=== PATIENT | female | born 1970 | race Caucasian/White ===

== ENCOUNTER 2023-07-15 08:14 | Outpatient (OUT) | payer OTHER, SELFPAY ==
[2023-07-15 09:00] LABS: Basophils Percent Auto 0.4 % (0.2-2.0); Eosinophils Absolute Auto 0.2 10^3/uL (0.0-0.7); Eosinophils Percent Auto 2.5 % (0.9-7.0); Hematocrit 38.6 % (36.0-48.0); Hemoglobin 12.5 g/dL (12.0-16.0); Immature Granulocytes Abs Auto 0.02 10^3/uL (0.00-0.03); Immature Granulocytes Pct Auto 0.3 % (0.0-0.5); Lymphocytes Absolute Auto 1.7 10^3/uL (1.2-3.8); Lymphocytes Percent Auto 24.2 % (20.5-60.0); Mean Corpuscular HGB Conc 32.4 g/dL (29.9-35.2); Mean Corpuscular Hemoglobin 30.9 pg (26.7-34.0); Mean Corpuscular Volume 95.5 fL (81.0-99.0); Mean Platelet Volume 10.6 fL (9.5-13.5); Monocytes Absolute Auto 0.6 10^3/uL (0.3-0.8); Monocytes Percent Auto 8.2 % (1.7-12.0); Neutrophils Absolute Auto 4.4 10^3/uL (1.4-6.5); Neutrophils Percent Auto 64.4 % (43.0-75.0); Platelet Count 236 10^3/uL (150-450); Red Blood Count 4.04 10^6/uL (4.20-5.40); Red Cell Distribution Width 13.7 % (11.0-15.0); White Blood Count 6.9 10^3/uL (4.0-11.0)
[2023-07-15 09:37] LABS: Alanine Aminotransferase 15 U/L (14-59); Albumin Level 3.4 g/dL (3.4-5.0); Alkaline Phosphatase 53 U/L (46-116); Anion Gap 10.1; Aspartate Amino Transferase 15 U/L (15-37); BUN Creatinine Ratio 24.2; Bilirubin Total 0.3 mg/dL (0.2-1.0); Calcium 8.7 mg/dL (8.5-10.1); Carbon Dioxide 25.8 mmol/L (21.0-32.0); Chloride 104 mmol/L (98-107); Chol HDL Ratio 2.8; Cholesterol 132 mg/dL (<=200); Estimated GFR (African America >60 (>=60); Estimated GFR (Non-African Ame >60 (>=60); Globulin 3.5 g/dL; Glucose 97 mg/dL (74-106); HDL Cholesterol 48 mg/dL (40-60); LDL Cholesterol Calculated 66.4 mg/dL; Potassium 3.9 mmol/L (3.5-5.1); Sodium 136 mmol/L (136-145); Thyroid Stimulating Hormone 0.053 uIU/mL (0.358-3.740); Total Protein 6.9 g/dL (6.4-8.2); Triglycerides 88 mg/dL (<=150); VLDL CHOLESTEROL 17.6 mg/dL
[2023-07-15 09:54] LABS: Free T4 1.18 ng/dL (0.76-1.46)
[2023-07-15 09:58] LABS: Estimated Average Glucose 111 mg/dL; Glycohemoglobin A1C 5.5 % (4.5-6.2)
== END 2023-07-15 08:15 | disposition home or self-care (01) ==
LOC: LAB 08:18
PROVIDERS: Family Provider Obstetrics & Gynecology; PCP Family Medicine; Visit Provider Family Medicine
DX: Z00.00 Encounter for general adult medical examination without abnormal findings (principal); R35.0 Frequency of micturition; R53.83 Other fatigue; E03.9 Hypothyroidism, unspecified
CPT/HCPCS: 36415; 80053; 80061; 81001; 83036; 84439; 84443; 85025; 87086

== ENCOUNTER 2023-07-15 08:24 | Outpatient (OUT) | payer OTHER, SELFPAY ==
[2023-07-15 08:45] LABS: Bilirubin Urine NEGATIVE (NEGATIVE); Blood Urine NEGATIVE (NEGATIVE); Clarity Urine CLEAR (CLEAR); Color Urine LT. YELLOW (YELLOW); Glucose Urine UA NEGATIVE (NEGATIVE); Ketones Urine NEGATIVE (NEGATIVE); Leukocyte Esterase Urine NEGATIVE (NEGATIVE); Nitrite Urine NEGATIVE (NEGATIVE); Protein Urine NEGATIVE (NEG/TRACE); Specific Gravity Urine >=1.030 (1.005-1.025); Urobilinogen Urine 0.2 EU/dL (0.2-1.0)
[2023-07-15 09:35] LABS: Bacteria Urine NONE SEEN #/HPF (NONE SEEN); Mucus Urine NONE SEEN (NONE SEEN); RBC Urine NONE SEEN #/HPF (0-2); Squamous Epithelial Cell Urine FEW #/LPF (NONE/RARE); WBC Urine NONE SEEN #/HPF (NONE SEEN)
[2023-07-15 09:36] LABS: Urine Culture Indicated ALREADY ORDERED
== END 2023-07-15 08:25 | disposition home or self-care (01) ==
LOC: LAB 08:29
PROVIDERS: Family Provider Obstetrics & Gynecology; PCP Family Medicine; Visit Provider Nurse Practitioner Family
DX: R35.0 Frequency of micturition (principal)
CPT/HCPCS: 81001; 87086

== ENCOUNTER 2024-02-24 08:55 | Outpatient (OUT) | payer OTHER, SELFPAY ==
--- OUTSIDE RECORDS SUMMARY | 2024-02-24 09:04 | XMS_ITS | CCD ---
Author Organization [facility] Care Team Providers Care Hyperion Essbase Developer Name Role Phone HOY ., DR STONER Admitting Unavailable HOY ., DR STONER Attending Unavailable HOY ., DR STONER Primary Care Unavailable HOY ., DR STONER Consulting Unavailable ZieberMisael Consulting Unavailable VISCI, DR SALEEM Consulting Unavailable HOY ., DR STONER Admitting Unavailable HOY ., DR STONER Attending Unavailable HOY ., DR STONER Primary Care Unavailable HOY ., DR STONER Consulting Unavailable HOY ., DR STONER Admitting Unavailable HOY ., DR STONER Attending Unavailable HOY ., DR STONER Primary Care Unavailable HOY ., DR STONER Consulting Unavailable HOY ., DR STONER Admitting Unavailable HOY ., DR STONER Attending Unavailable HOY ., DR STONER Primary Care Unavailable HOY ., DR STONER Consulting Unavailable Hoy, Georgiana M Primary Care Unavailable Visci, Phill Attending Unavailable Visci, Phill Admitting Unavailable VISCI, PHILL A Attending Unavailable VISCI, PHILL A Referring Unavailable Problems Problem Classification Problem Date Documented Da te Episodic/Chronic Other screening for suspected conditions (not mental disorders or infectious disease) (4 sources) Encounter for screening mammogram for malignant neoplasm of breast; Translations: [ENC SCR MAMMO MALIG NEOPLASM BREAST] Onset: 09-13-2022 Episodic Residual codes; unclassified (1 source) Family history of malignant neoplasm of breast; Translations: [FAMILY HX MALIG NEOPLASM OF BREAST] Onset: 09-19-2022 Episodic Residual codes; unclassified (1 source) Family history of malignant neoplasm of bladder; Translations: [FAM HX MALIGNANT NEOPLASM BLADDER] Onset: 09-19-2022 Episodic Unclassified (1 source) Adenomyosis of the uterus; Translations: [Adenomyosis of the uterus] Onset: 11-16-2022 Results Test Name Value Interpretation Reference Range Facility BI MAMMOGRAM SCREENING TOMOS YKYARAIS BILATERALon 12-27-2023 BI MAMMOGRAM SCREENING TOMOSYNTHESIS BILATERAL This is a summary report. The complete report is available in the patient's medical record. If you cannot access the medical record, please contact the sending organization for a detailed fax or copy. EXAMINATION: BI MAMMOGRAM SCREENING TOMOSYNTHESIS BILATERAL CLINICAL HISTORY:screening COMPARISON: September 13, 2022. RESULT: Density: Almost entirely fatty [1] Overall appearance is stable. There is no suspicious mass, asymmetry, architectural distortion, or calcification IMPRESSION: BIRADS 1 - Negative Follow-up: Routine Screening Mamm Board Certified Radiologists. Accredited by the ACR and FDA. MAMMOGRAPHY IS VERY IMPORTANT TO YOUR HEALTH. THE [place] [employer] SOCIET[employer] GUIDELINES RECOMMEND THAT WOMEN 40 YEARS OF AGE AND OLDER SHOULD HAVE A MAMMOGRAM EVERY YEAR. A REMINDER LETTER WILL BE SENT AT THE APPROPRIATE TIME. THIS FACILITY UTILIZES A REMINDER SYSTEM TO ENSURE ALL PATIENTS RECEIVE REMINDER NOTIFICATIONS AT THE APPROPRIATE TIME BASED ON THE RECOMMENDATIONS OF THIS EXAM. THIS INCLUDES REMINDERS FOR ROUTINE SCREENING MAMMOGRAMS, DIAGNOSTIC MAMMOGRAMS IN WHICH THE PATIENT IS ASKED TO RETURN FOR ADDITIONAL VIEWS, OR OTHER BREAST IMAGING INTERVENTIONS WHEN APPROPRIATE. THE PATIENT WILL BE PLACED IN THE APPROPRIATE REMINDER SYSTEM INCLUDING A REMINDER AT THE APPROPRIATE TIME FOR ANY PENDING ADDITIONAL VIEWS. TRANSCRIBED BY: ELECTRONICALLY SIGNED BY: Kanu Linda MD Normal Not Available Complete Blood Count Auto Di ffon 11-16-2022 Basophils (Bld) [#/Vol] 0.0 10*3/uL Normal 0.0-0.2 [facility] Comment on above: Result Comment: PERF ORMED BY: [place] [address] PATHOLOGIST MARKETING SUPPORT SPECIALIST TREY WILBURN M.D. Performed By: #### C BC #### [address] Basophils/100 WBC (Bld) 0.5 % Normal . [facility] Comment on above: Performed By: #### C BC #### [facility] [address] [place] [address] Eosinophils (Bld) [#/Vol] 0.2 10*3/uL Normal 0.0-0.45 [facility] Comment on above: Performed By: #### C BC #### [place] [address] [place] Eosinophils/100 WBC (Bld) 3.0 % Normal . [facility] Comment on above: Performed By: #### C BC #### [address] Erythrocyte distribution width (RBC) [Ratio] 13.5 % Normal 11.9-15.3 [facility] Comment on above: Performed By: #### C BC #### [address] Hematocrit (Bld) [Volume fraction] 38.5 % Normal 34.0-46.4 [facility] Comment on above: Performed By: #### C BC #### [address] Hemoglobin (Bld) [Mass/Vol] 13.0 g/dL Normal 11.8-15.4 [facility] Comment on above: Performed By: #### C BC #### [address] Lymphocytes (Bld) [#/Vol] 1.4 10*3/uL Normal 1.00-4.8 [facility] Comment on above: Performed By: #### C BC #### [address] Lymphocytes/100 WBC (Bld) 24.7 % Normal . [facility] Comment on above: Performed By: #### C BC #### [address] MCH (RBC) [Entitic mass] 31.5 pg Normal 24.7-34.3 [facility] Comment on above: Performed By: #### C BC #### [address] MCV (RBC) [Entitic vol] 93.7 fL Normal 80-100 [facility] Comment on above: Performed By: #### C BC #### [address] Mean Corpuscular HGB Conc 33.7 g/dL Normal 32.0-35.0 [facility] Comment on above: Performed By: #### C BC #### [address] Monocytes (Bld) [#/Vol] 0.4 10*3/uL Normal 0.0-0.8 [facility] Comment on above: Performed By: #### C BC #### [address] Monocytes/100 WBC (Bld) 7.4 % Normal . [facility] Comment on above: Performed By: #### C BC #### [address] Neutrophils (Bld) [#/Vol] 3.7 10*3/uL Normal 1.8-7.7 [facility] Comment on above: Performed By: #### C BC #### [address] Neutrophils/100 WBC (Bld) 64.4 % Normal . [facility] Comment on above: Performed By: #### C BC #### [address] NRBC% 0.1 /100{WBC} Normal 0-0.5 [facility] Comment on above: Performed By: #### C BC #### [address] Platelet mean volume (Bld) [Entitic vol] 9.3 fL Normal 6.3-10.7 [facility] Comment on above: Performed By: #### C BC #### [address] Platelets (Bld) [#/Vol] 228 10*3/uL Normal 150-450 [facility] Comment on above: Performed By: #### C BC #### [address] RBC (Bld) [#/Vol] 4.11 10*6/uL Normal 3.60-5.[address] [facility] Comment on above: Performed By: #### C BC #### [facility] [address] WBC (Bld) [#/Vol] 5.7 10*3/uL Normal 3.8-11.6 [facility] Comment on above: Performed By: #### C BC #### [facility] [address] [place] [address] ECG 12 lead ECGon 11-16-2022 [address] [facility] [place] [address] [place] [address] Electrocardiograph Report Signed Patient: Patricia Knutson MR#: [id number] 5 : 1970 Acct:[id number] Age/Sex: 52 / F ADM Date: 11/16/22 Loc: [place] Room: Type: [facility] Attending Dr: Phill Gil DO Ordering Provider: Brando Young Jr, MD Date of Service: 11/16/22 ECG/ECG 12 lead ECG: pre op Copies to: Test Reason : Blood Pressure : / mmHG Vent. Rate : 072 BPM Atrial Rate : 072 BPM P-R Int : 136 ms QRS Dur : 092 ms QT Int : 386 ms P-R-T Axes : 061 075 058 degrees QTc Int : 422 ms Normal sinus rhythm Normal ECG When compared with ECG of 02-OCT-2007 15:58, No significant change was found Confirmed by ROSANA CHRIS [facility] ([id number] on 11/16/2022 3:35:57 PM Referred By: PATRICIA Electronically Signed By:BARBARA WAYNE MD FAC Transcribed By: MUS Signed By Spencer Wayne MD 11/16/22 1535 Normal [facility] HCG,Urineon 11-16-2022 Beta HCG ( test) Ql (U) Negative Normal [facility] Comment on above: Result Comment: PERF ORMED BY: [place] [address] PATHOLOGIST MARKETING SUPPORT SPECIALIST TREY WILBURN M.D. Performed By: #### U HCG #### [facility] [address] [id number] [facility] 11-16-2022 L - -------- Specimen: [id number] Received: 11/16/22 Status: TOMA Manning Num: [id number] Spec Type: Surgical Subm Dr: Phill Gil DO Tissues: A Endometrium - Curettings (EMC) Procedures: Pilar/Gallo L4 -------- Age/ Patient Sex Location Account Attending Physician -------- Patricia Knutson 52/F PA [id number] Phill Gil DO -------- SPEC NUM: [id number] RECD: 11/16/22 STATUS: TOMA MANNING NUM: [id number] PRINCE: 11/16/[address]: Phill Gil DO ENTERED: 11/16/[address] [facility] [address]: SPEC TYPE: Surgical DEPT: S ORDERED: HE/12, Gross/Micro L4 ORDERED: HE/, Gross/Micro L4 Pathological Diagnosis A. Endometrium, endometrial curettings: - Features suggestive of endometrial polyp (see comment). - Portions of weakly proliferative and secretory endometrium. - Benign fragments of cauterized smooth muscle. - Fragments of endocervical epithelium with squamous metaplasia. - Fragments of benign squamous epithelium. Comment: In the absence of clinically obvious endometrial polyp this could represent disordered proliferative endometrium. There is no obvious evidence of hyperplasia. Please correlate clinically. Gross Description A. Received in formalin labeled with the patient's name, number and EMC are multiple fragments of granular camacho-pink soft tissue admixed with blood clots measuring 5 x 2.5 x 1.3 cm. Entirely submitted in 5 cassettes labeled as A1 to A5. -------- -------- Specimen: [id number] Received: 11/16/22 Status: TOMA Lamasdimas Num: [id number] Spec Type: Surgical Subm Dr: Phill Gil DO Tissues: A Endometrium - Curettings (EMC) Procedures: , Gross/Micro L4 -------- Patient: Patricia Knutson [id number] (Continued) -------- Signed (signature on file) Georgette Wayne MD 11/17/22 1412 [facility] MG MAMM SCREEN 3D BIJAN CADon 09-13-2022 MG MAMM SCREEN 3D BIJAN CAD Patient: PATRICIA KNUTSON. Exam Date: 09/13/2022 : 1970 Gender:F Ordering : DR GEORGIANA CAM . Admission #: [id number] Family : Order #: [id number] CLICK HERE TO VIEW EXAM RADIOLOGY REPORT PROCEDURE: MAMMOGRAM SCREENING 3D BILATERAL CAD COMPARISON: MG MAMM SCREEN 3D BIJAN CAD, 10/16/2020. MG MAMM SCREEN BIJAN W CAD, 08/14/2019. MG MAMM SCREEN BIJAN W CAD, 08/12/2017. MG MAMM BIJAN SCRN W CAD DIG, 05/07/2014. INDICATIONS: Screening mammography Calculator Name NCI Breast Cancer Risk Assessment Tool 5 Year Breast Cancer Risk 1.20% Lifetime Breast Cancer Risk 9.60% Personal Breast Cancer No Personal Ovarian Cancer No Treatments None Family Cancers Aunt-maternal with breast cancer at age 70; Brother with bladder cancer at age 51. LOCATION: [facility] BREAST COMPOSITION: Heterogeneously dense,which may obscure small masses. FINDINGS: DIAGNOSTIC CATEGORY 2--BENIGN FINDING: RIGHT BREAST: No significant suspicious finding. Scattered benign-appearing lymph nodes are present. No significant change has occurred. LEFT BREAST: No significant suspicious finding. Scattered benign-appearing lymph nodes are present. No significant change has occurred. RECOMMENDATIONS: ROUTINE MAMMOGRAM AND CLINICAL EVALUATION IN 12 MONTHS. PLEASE NOTE: A NORMAL MAMMOGRAM DOES NOT EXCLUDE THE POSSIBILITY OF BREAST CANCER. A CLINICALLY SUSPICIOUS PALPABLE LUMP SHOULD BE BIOPSIED. Dictated by: Misael Sandhu M.D. on 09/13/2022 at 11:41 Approved by: Misael Sandhu M.D. on 09/13/2022 at 11:50 Normal [facility] CBC AUTO DIFFon 05-27-2022 BASO # 0.0 103/ul Normal 0.0-0.1 [facility] Comment on above: Performed By: #### C BC ####[facility] [address] [place] [address]Dr. Raul Owens Basophils/100 WBC (Bld) 0.6 % Normal 0.2-2.0 [facility] Comment on above: Performed By: #### C BC ####[facility] [address] [place], [place] [address]Dr. Raul Owens EO # 0.2 103/ul Normal 0.0-0.7 [facility] Comment on above: Performed By: #### C BC ####[facility] [address] [place], [place] [address]Dr. Raul Owens Eosinophils/100 WBC (Bld) 3.1 % Normal 0.9-7.0 [facility] Comment on above: Performed By: #### C BC ####[facility] [address] [place], [place] [address]Dr. Raul Owens Erythrocyte distribution width (RBC) [Ratio] 13.5 % Normal 11.0-15.0 [facility] Comment on above: Performed By: #### C BC ####[facility] [address] [place], [place] [address]Dr. Raul Owens Hematocrit (Bld) [Volume fraction] 39.6 % Normal 36.0-48.0 [facility] Comment on above: Performed By: #### C BC ####[facility] [address] [place], [place] [address]Dr. Raul Owens Hemoglobin (Bld) [Mass/Vol] 13.0 g/dL Normal 12.0-16.0 [facility] Comment on above: Performed By: #### C BC ####[facility] [address] [address]Dr. Raul Owens IG # 0.02 10e3/ul Normal 0.00-0.03 [facility] Comment on above: Performed By: #### C BC ####[facility] [address] [address]Dr. Raul Owens IG % 0.3 % Normal 0.0-0.5 [facility] Comment on above: Performed By: #### C BC ####[facility] [address] [place], [place] [address]Dr. Raul Owens LYMPH # 2.1 103/ul Normal 1.2-3.8 [facility] Comment on above: Performed By: #### C BC ####[facility] [address] [place], [place] [address]Dr. Raul Owens Lymphocytes/100 WBC (Bld) 31.0 % Normal 20.5-60.0 [facility] Comment on above: Performed By: #### C BC ####[facility] [address] [address]Dr. Raul Owens MANUAL DIFF REQ NO Normal [facility] Comment on above: Performed By: #### C BC ####[facility] [address] [place], [place] [address]Dr. Raul Owens MCH (RBC) [Entitic mass] 30.4 pg Normal 26.7-34.0 [facility] Comment on above: Performed By: #### C BC ####[facility] [address] [place], [place] [address]DrGiovanni Owens MCHC (RBC) [Mass/Vol] 32.8 g/dL Normal 29.9-35.2 [facility] Comment on above: Performed By: #### C BC ####[facility] [address] [place], [place] [address]Dr. Raul Owens MCV (RBC) [Entitic vol] 92.5 fL Normal 81.0-99.0 [facility] Comment on above: Performed By: #### C BC ####[facility] [address] [place], [place] [address]Dr. Raul Owens MONO # 0.5 103/ul Normal 0.3-0.8 [facility] Comment on above: Performed By: #### C BC ####[facility] [address] [place], [place] [address]Dr. Raul Roman Monocytes/100 WBC (Bld) 7.2 % Normal 1.7-12.0 [facility] Comment on above: Performed By: #### C BC ####[facility] [address] [place], [place] [address]Dr. Raul Owens NEUT # 3.9 103/ul Normal 1.4-6.5 [facility] Comment on above: Performed By: #### C BC ####[facility] [address] [place], [place] [address]Dr. Raul Roman Neutrophils/100 WBC (Bld) 57.8 % Normal 43.0-75.0 [facility] Comment on above: Performed By: #### C BC ####[facility] [address] [place], [place] [address]Dr. Raul Roman Platelet mean volume (Bld) [Entitic vol] 10.3 fL Normal 9.5-13.5 [facility] Comment on above: Performed By: #### C BC ####[facility] [address] [place], [place] [address]Dr. Raul Roman PLT 263 103/ul Normal 150-450 [facility] Comment on above: Performed By: #### C BC ####[facility] [address] [place], [place] [address]Dr. Danielleroseanna Roman RBC 4.28 106/ul Normal 4.20-5.40 [facility] Comment on above: Performed By: #### C BC ####[facility] [address] [place], [place] [address]Dr. Raul Owens WBC 6.8 103/ul Normal 4.0-11.0 [facility] Comment on above: Performed By: #### C BC ####[facility] [address] [address]Dr. Raul Owens FREE THYROXINE INDEX T7on FTI 3.28 Normal 1.30-4.50 [facility] Comment on above: Performed By: #### L IPID, TSH, CMP, T7 ####[facility] [address] [place] [id number]. Raul Owens T3U 36.0 % Normal 30.0-39.0 [facility] Comment on above: Performed By: #### L IPID, TSH, CMP, T7 ####[facility] [address] [address]Dr. Raul Owens T4 [Mass/Vol] 9.10 ug/dL Normal 4.80-13.90 [facility] Comment on above: Performed By: #### L IPID, TSH, CMP, T7 ####[facility] [address] [address]Dr. Raul Owens GLYCOHEMOGLOBIN A1Con 2021 ADA RECOMMENDATION SEE BELOW Normal [facility] Comment on above: Result Comment: ADA RECOMMENDED LIMIT 4.0 - 6.0 ADA THERAPEUTIC TARGET < 7.0 ACTION SUGGESTED > 7.0 Performed By: #### A 1C #### [facility] [address] [address] [address] Raul Owens Glucose [Mass/Vol] 114 mg/dL Normal [facility] Comment on above: Performed By: #### A 1C #### [facility] [address] [address] [address] Raul Owens HbA1c (Bld) [Mass fraction] 5.6 % Normal 4.5-6.2 [facility] Comment on above: Performed By: #### A 1C #### [facility] [address] [address] [address] Raul Owens IRONon 05-27-2022 Iron [Mass/Vol] 84.0 ug/dL Normal 50.0-170.0 [facility] Comment on above: Performed By: #### I KANNAN, VITAD ####[facility] [address] [place] [id number]. Danielleroseanna Roman LIPID PROFILEon 05-27-2022 CHOL-HDL RATIO NORM SEE BELOW Normal [facility] Comment on above: Result Comment: 3.3 - 4.4 LOW RISK 4.4 - 7.1 AVERAGE RISK 7.1 - 11.0 MODERATE RISK >11.0 HIGH RISK Performed By: #### L IPID, TSH, CMP, T7 ####[facility] [address] [place], [place] [address]Hj. Danielleroseanna Roman Cholesterol [Mass/Vol] 151 mg/dL Normal <=200 [facility] Comment on above: Performed By: #### L IPID, TSH, CMP, T7 ####[facility] [address] [place] [id number]. Raul Owens Cholesterol in HDL [Mass/Vol] 55 mg/dL Normal 40-60 [facility] Comment on above: Performed By: #### L IPID, TSH, CMP, T7 ####[facility] [address] [place] [id number]. Raul Owens Cholesterol in LDL [Mass/Vol] 79.4 mg/dL Normal [facility] Comment on above: Performed By: #### L IPID, TSH, CMP, T7 ####[facility] [address] [place] [id number]. Raul Owens Cholesterol.total/Cho lesterol in HDL [Mass ratio] 2.7 {ratio} Normal [facility] Comment on above: Performed By: #### L IPID, TSH, CMP, T7 ####[facility] [address] [place] [id number]. Raul Owens HDL NORMAL > or = 60 mg/dl - LO W CARDIOVASCULAR RISK <40 mg/dl - HIGH CARDIOVASCULAR RISK Normal [facility] Comment on above: Performed By: #### L IPID, TSH, CMP, T7 ####[facility] [address] [place] [id number] Owens LDL CALC NORMAL SEE BELOW Normal [facility] Comment on above: Result Comment: <100 mg/dl OPTIMAL 100 - 129 mg/dl NEAR OR ABOVE OPTIMAL 130 - 159 mg/dl BORDERLINE HIGH 160 - 189 mg/dl HIGH >190 mg/dl VERY HIGH Performed By: #### L IPID, TSH, CMP, T7 ####[facility] [address] [place], [place] [address]TtDr. Raul Owens Triglyceride [Mass/Vol] 83 mg/dL Normal <=150 [facility] Comment on above: Performed By: #### L IPID, TSH, CMP, T7 ####[facility] [address] [place], [place] [address]OnDr. Raul Owens VLDL CALC 16.6 mg/dL Normal [facility] Comment on above: Performed By: #### L IPID, TSH, CMP, T7 ####[facility] [address] [place], [place] [address]AuDr. Raul Owens PROF 14(COMP METB)on 022 Albumin [Mass/Vol] 3.6 g/dL Normal 3.4-5.0 [facility] Comment on above: Performed By: #### L IPID, TSH, CMP, T7 #### [facility] [address] [address] [address] Raul Owens Albumin/Globulin [Mass ratio] 1.1 {ratio} Normal [facility] Comment on above: Performed By: #### L IPID, TSH, CMP, T7 #### [facility] [address] [address] [address] Raul Owens ALP [Catalytic activity/Vol] 61 U/L Normal 46-116 [facility] Comment on above: Performed By: #### L IPID, TSH, CMP, T7 #### [facility] [address] [address] [address] Raul Owens ALT [Catalytic activity/Vol] 11 U/L Critically low 14-59 [facility] Comment on above: Performed By: #### L IPID, TSH, CMP, T7 #### [facility] [address] [address] [address] Raul Owens Anion gap [Moles/Vol] 10.0 mmol/L Normal Th [facility] Comment on above: Performed By: #### L IPID, TSH, CMP, T7 #### [facility] [address] [address] [address] Raul Owens AST [Catalytic activity/Vol] 15 U/L Normal 15-37 [facility] Comment on above: Performed By: #### L IPID, TSH, CMP, T7 #### [facility] [address] [address] [address] Raul Owens Bilirubin [Mass/Vol] 0.3 mg/dL Normal 0.2-1.0 [facility] Comment on above: Performed By: #### L IPID, TSH, CMP, T7 #### [facility] [address] [address] [address] Raul Owens Calcium [Mass/Vol] 8.6 mg/dL Normal 8.5-10.1 [facility] Comment on above: Performed By: #### L IPID, TSH, CMP, T7 #### [facility] [address] [address] [address] Raul Owens Chloride [Moles/Vol] 104 mmol/L Normal 98-107 [facility] Comment on above: Performed By: #### L IPID, TSH, CMP, T7 #### [facility] [address] [place] [address] Dr. Raul Owens CO2 [Moles/Vol] 28.5 mmol/L Normal 21.0-32.0 [facility] Comment on above: Performed By: #### L IPID, TSH, CMP, T7 #### [facility] [address] [address] [address] Raul Owens Creatinine [Mass/Vol] 0.74 mg/dL Normal 0.55-1.02 [facility] Comment on above: Performed By: #### L IPID, TSH, CMP, T7 #### [facility] [address] [address] [address] Raul Owens EGFR-AF SWAZI >60 Normal >=60 [facility] Comment on above: Performed By: #### L IPID, TSH, CMP, T7 #### [facility] [address] [address] [address] Raul Owens EGFR-NON AF SWAZI >60 Normal >=60 [facility] Comment on above: Performed By: #### L IPID, TSH, CMP, T7 #### [facility] [address] [address] [address] Raul Owens Globulin (S) [Mass/Vol] 3.3 g/dL Normal [facility] Comment on above: Performed By: #### L IPID, TSH, CMP, T7 #### [facility] [address] [address] [address] Raul Owens Glucose [Mass/Vol] 99 mg/dL Normal 74-106 [facility] Comment on above: Performed By: #### L IPID, TSH, CMP, T7 #### [facility] [address] [address] [address] Raul Owens Potassium [Moles/Vol] 4.5 mmol/L Normal 3.5-5.1 [facility] Comment on above: Performed By: #### L IPID, TSH, CMP, T7 #### [facility] [address] [address] [address] Raul Owens Protein [Mass/Vol] 6.9 g/dL Normal 6.4-8.2 [facility] Comment on above: Performed By: #### L IPID, TSH, CMP, T7 #### [facility] [address] [address] [address] Raul Owens Sodium [Moles/Vol] 138 mmol/L Normal 136-145 [facility] Comment on above: Performed By: #### L IPID, TSH, CMP, T7 #### [facility] [address] [place] [address] Dr. Raul Owens Urea nitrogen [Mass/Vol] 11.0 mg/dL Normal 7.0-18.0 [facility] Comment on above: Performed By: #### L IPID, TSH, CMP, T7 #### [facility] [address] [address] [address] Raul Owens Urea nitrogen/Creatinine [Mass ratio] 14.9 mg/mg Normal [facility] Comment on above: Performed By: #### L IPID, TSH, CMP, T7 #### [facility] [facility] [address] [address] [address] Raul Owens TSHon 05-27-2022 TSH 0.107 uIU/mL Critically low 0.358-3.740 [facility] Comment on above: Performed By: #### L IPID, TSH, CMP, T7 #### [facility] [address] [address] [address] Raul Owens VITAMIN D 25 OHon 05-27-2022 VIT D 25-OH 21.7 ng/mL Normal [facility] Comment on above: Performed By: #### I KANNAN VITAD ####[facility] [address] [place], [place] [address]DrGiovanni Owens VIT D RANGES SEE BELOW Normal [facility] Comment on above: Result Comment: <20 ng/mL Vit D deficient 20 - <30 ng/mL Vit D insufficient 30 - 100 ng/mL Vit D sufficient >100 ng/mL Potential Toxicity Performed By: #### I KANNAN VITAD ####[facility] [address] [place], [place] [address]DrGiovanni Owens OCC BLD IMMUNO SCREENon 10-04 OCCULT BLOOD Negative Normal NEGATIVE [facility] Comment on above: Performed By: #### O BSCRN ####[facility] [address] [address]DrGiovanni Owens CBC AUTO DIFFon 10-14-2021 BASO # 0.0 103/ul Normal 0.0-0.1 [facility] Comment on above: Performed By: #### C BC ####[facility] [address] [address]DrGiovanni Owens Basophils/100 WBC (Bld) 0.7 % Normal 0.2-2.0 [facility] Comment on above: Performed By: #### C BC ####[facility] [address] [address]Dr. Raul Owens EO # 0.2 103/ul Normal 0.0-0.7 [facility] Comment on above: Performed By: #### C BC ####[facility] [address] [place], [place] [address]Dr. Raul Owens Eosinophils/100 WBC (Bld) 5.2 % Normal 0.9-7.0 [facility] Comment on above: Performed By: #### C BC ####[facility] [address] [place], [place] [address]Dr. Raul Owens Erythrocyte distribution width (RBC) [Ratio] 13.3 % Normal 11.0-15.0 [facility] Comment on above: Performed By: #### C BC ####[facility] [address] [place], [place] [address]Dr. Raul Owens Hematocrit (Bld) [Volume fraction] 40.3 % Normal 36.0-48.0 [facility] Comment on above: Performed By: #### C BC ####[facility] [address] [place], [place] [address]Dr. Raul Owens Hemoglobin (Bld) [Mass/Vol] 13.0 g/dL Normal 12.0-16.0 [facility] Comment on above: Performed By: #### C BC ####[facility] [address] [place], [place] [address]Dr. Raul Owens IG # 0.01 10e3/ul Normal 0.00-0.03 [facility] Comment on above: Performed By: #### C BC ####[facility] [address] [place], [place] [address]Dr. Raul Owens IG % 0.2 % Normal 0.0-0.5 [facility] Comment on above: Performed By: #### C BC ####[facility] [address] [place], [place] [address]Dr. Raul Owens LYMPH # 1.3 103/ul Normal 1.2-3.8 [facility] Comment on above: Performed By: #### C BC ####[facility] [address] [id number]. Raul Roman Lymphocytes/100 WBC (Bld) 27.9 % Normal 20.5-60.0 [facility] Comment on above: Performed By: #### C BC ####[facility] [address] [address]Dr. Danielleroseanna Owens MANUAL DIFF REQ NO Normal [facility] Comment on above: Performed By: #### C BC ####[facility] [address] [id number]. Raul Roman MCH (RBC) [Entitic mass] 30.8 pg Normal 26.7-34.0 [facility] Comment on above: Performed By: #### C BC ####[facility] [address] [place], [place] [address]Dr. Raul Roman MCHC (RBC) [Mass/Vol] 32.3 g/dL Normal 29.9-35.2 [facility] Comment on above: Performed By: #### C BC ####[facility] [address] [place], [place] [address]Dr. Danielleroseanna Owens MCV (RBC) [Entitic vol] 95.5 fL Normal 81.0-99.0 [facility] Comment on above: Performed By: #### C BC ####[facility] [address] [place], [place] [address]Dr. Raul Owens MONO # 0.4 103/ul Normal 0.3-0.8 [facility] Comment on above: Performed By: #### C BC ####[facility] [address] [place], [place] [address]Dr. Danielleroseanna Owens Monocytes/100 WBC (Bld) 7.8 % Normal 1.7-12.0 [facility] Comment on above: Performed By: #### C BC ####[facility] [address] [place], [place] [address]Dr. Raul Owens NEUT # 2.7 103/ul Normal 1.4-6.5 [facility] Comment on above: Performed By: #### C BC ####[facility] [address] [address]Dr. Raul Owens Neutrophils/100 WBC (Bld) 58.2 % Normal 43.0-75.0 [facility] Comment on above: Performed By: #### C BC ####[facility] [address] [address]Dr. Raul Owens Platelet mean volume (Bld) [Entitic vol] 10.7 fL Normal 9.5-13.5 [facility] Comment on above: Performed By: #### C BC ####[facility] [address] [address]Dr. Raul Owens PLT 250 103/ul Normal 150-450 [facility] Comment on above: Performed By: #### C BC ####[facility] [address] [address]Dr. Raul Owens RBC 4.22 106/ul Normal 4.20-5.40 [facility] Comment on above: Performed By: #### C BC ####[facility] [address] [place], [place] [address]Dr. Raul Owens WBC 4.6 103/ul Normal 4.0-11.0 [facility] Comment on above: Performed By: #### C BC ####[facility] [address] [address]DrGiovanni Owens FREE T3on 10-14-2021 FREE T3 2.28 pg/mlL Normal 2.18-3.98 [facility] Comment on above: Performed By: #### F T3, T4, CMP, TSH, LIPID #### [facility] [address] [address] [address] Raul Owens GLYCOHEMOGLOBIN A1Con 2021 ADA RECOMMENDATION SEE BELOW Normal [facility] Comment on above: Result Comment: ADA RECOMMENDED LIMIT 4.0 - 6.0 ADA THERAPEUTIC TARGET < 7.0 ACTION SUGGESTED > 7.0 Performed By: #### A 1C ####[facility] [address] [address]Dr. Raul Owens Glucose [Mass/Vol] 114 mg/dL Normal [facility] Comment on above: Performed By: #### A 1C ####[facility] [address] [place], [place] [address]UgDr. Raul Owens HbA1c (Bld) [Mass fraction] 5.6 % Normal 4.5-6.2 [facility] Comment on above: Performed By: #### A 1C ####[facility] [address] [place], [place] [address]TzDr. Raul Owens LIPID PROFILEon 10-14-2021 CHOL-HDL RATIO NORM SEE BELOW Normal [facility] Comment on above: Result Comment: 3.3 - 4.4 LOW RISK 4.4 - 7.1 AVERAGE RISK 7.1 - 11.0 MODERATE RISK >11.0 HIGH RISK Performed By: #### F T3, T4, CMP, TSH, LIPID #### [facility] [address] [address] [address] Raul Owens Cholesterol [Mass/Vol] 159 mg/dL Normal <=200 [facility] Comment on above: Performed By: #### F T3, T4, CMP, TSH, LIPID #### [facility] [address] [address] [address] Raul Owens Cholesterol in HDL [Mass/Vol] 57 mg/dL Normal 40-60 [facility] Comment on above: Performed By: #### F T3, T4, CMP, TSH, LIPID #### [facility] [address] [address] [address] Raul Owens Cholesterol in LDL [Mass/Vol] 86.2 mg/dL Normal [facility] Comment on above: Performed By: #### F T3, T4, CMP, TSH, LIPID #### [facility] [address] [address] [address] Raul Owens Cholesterol.total/Cho lesterol in HDL [Mass ratio] 2.8 {ratio} Normal [facility] Comment on above: Performed By: #### F T3, T4, CMP, TSH, LIPID #### [facility] [address] [address] [address] Raul Owens HDL NORMAL > or = 60 mg/dl - LO W CARDIOVASCULAR RISK <40 mg/dl - HIGH CARDIOVASCULAR RISK Normal [facility] Comment on above: Performed By: #### F T3, T4, CMP, TSH, LIPID #### [facility] [address] [address] [address] Raul Owens LDL CALC NORMAL SEE BELOW Normal [facility] Comment on above: Result Comment: <100 mg/dl OPTIMAL 100 - 129 mg/dl NEAR OR ABOVE OPTIMAL 130 - 159 mg/dl BORDERLINE HIGH 160 - 189 mg/dl HIGH >190 mg/dl VERY HIGH Performed By: #### F T3, T4, CMP, TSH, LIPID #### [facility] [address] [address] [address] Raul Owens Triglyceride [Mass/Vol] 79 mg/dL Normal <=150 [facility] Comment on above: Performed By: #### F T3, T4, CMP, TSH, LIPID #### [facility] [address] [address] [address] Raul Owens VLDL CALC 15.8 mg/dL Normal [facility] Comment on above: Performed By: #### F T3, T4, CMP, TSH, LIPID #### [facility] [address] [address] [address] Raul Owens PROF 14(COMP METB)on 022 Albumin [Mass/Vol] 3.6 g/dL Normal 3.4-5.0 [facility] Comment on above: Performed By: #### F T3, T4, CMP, TSH, LIPID #### [facility] [address] [address] [address] Raul Owens Albumin/Globulin [Mass ratio] 1.1 {ratio} Normal [facility] Comment on above: Performed By: #### F T3, T4, CMP, TSH, LIPID #### [facility] [address] [address] [address] Raul Owens ALP [Catalytic activity/Vol] 48 U/L Normal 46-116 [facility] Comment on above: Performed By: #### F T3, T4, CMP, TSH, LIPID #### [facility] [address] [address] [address] Raul Owens ALT [Catalytic activity/Vol] 20 U/L Normal 14-59 [facility] Comment on above: Performed By: #### F T3, T4, CMP, TSH, LIPID #### [facility] [address] [address] [address] Raul Owens Anion gap [Moles/Vol] 10.0 mmol/L Normal Th e [facility] Comment on above: Performed By: #### F T3, T4, CMP, TSH, LIPID #### [facility] [address] [place] [address] Dr. Raul Owens AST [Catalytic activity/Vol] 13 U/L Critically low 15-37 [facility] Comment on above: Performed By: #### F T3, T4, CMP, TSH, LIPID #### [facility] [address] [place] [address] Dr. Raul Owens Bilirubin [Mass/Vol] 0.6 mg/dL Normal 0.2-1.0 [facility] Comment on above: Performed By: #### F T3, T4, CMP, TSH, LIPID #### [facility] [address] [place] [address] Dr. Raul Owens Calcium [Mass/Vol] 8.7 mg/dL Normal 8.5-10.1 [facility] Comment on above: Performed By: #### F T3, T4, CMP, TSH, LIPID #### [facility] [address] [place] [address] Dr. Raul Owens Chloride [Moles/Vol] 104 mmol/L Normal 98-107 [facility] Comment on above: Performed By: #### F T3, T4, CMP, TSH, LIPID #### [facility] [address] [place] [address] Dr. Raul Owens CO2 [Moles/Vol] 28.4 mmol/L Normal 21.0-32.0 [facility] [place] [facility] Comment on above: Performed By: #### F T3, T4, CMP, TSH, LIPID #### [facility] [address] [place] [address] Dr. Raul Owens Creatinine [Mass/Vol] 0.71 mg/dL Normal 0.55-1.02 [facility] Comment on above: Performed By: #### F T3, T4, CMP, TSH, LIPID #### [facility] [address] [address] [address] Raul Owens EGFR-AF SWAZI >60 Normal >=60 [facility] Comment on above: Performed By: #### F T3, T4, CMP, TSH, LIPID #### [facility] [address] [address] [address] Raul Owens EGFR-NON AF SWAZI >60 Normal >=60 [facility] Comment on above: Performed By: #### F T3, T4, CMP, TSH, LIPID #### [facility] [address] [address] [address] Raul Owens Globulin (S) [Mass/Vol] 3.4 g/dL Normal [facility] Comment on above: Performed By: #### F T3, T4, CMP, TSH, LIPID #### [facility] [address] [address] [address] Raul Owens Glucose [Mass/Vol] 99 mg/dL Normal 74-106 [facility] Comment on above: Performed By: #### F T3, T4, CMP, TSH, LIPID #### [facility] [address] [address] [address] Raul Owens Potassium [Moles/Vol] 4.4 mmol/L Normal 3.5-5.1 [facility] Comment on above: Performed By: #### F T3, T4, CMP, TSH, LIPID #### [facility] [address] [address] [address] Raul Owens Protein [Mass/Vol] 7.0 g/dL Normal 6.4-8.2 [facility] Comment on above: Performed By: #### F T3, T4, CMP, TSH, LIPID #### [facility] [address] [address] [address] Raul Owens Sodium [Moles/Vol] 138 mmol/L Normal 136-145 [facility] Comment on above: Performed By: #### F T3, T4, CMP, TSH, LIPID #### [facility] [address] [address] [address] Raul Owens Urea nitrogen [Mass/Vol] 9.0 mg/dL Normal 7.0-18.0 [facility] Comment on above: Performed By: #### F T3, T4, CMP, TSH, LIPID #### [facility] [address] [address] [address] Raul Owens Urea nitrogen/Creatinine [Mass ratio] 12.7 mg/mg Normal [facility] Comment on above: Performed By: #### F T3, T4, CMP, TSH, LIPID #### [facility] [address] [address] [address] Raul Owens T4on 10-14-2021 T4 [Mass/Vol] 10.00 ug/dL Normal 4.80-13.90 [facility] Comment on above: Performed By: #### F T3, T4, CMP, TSH, LIPID #### [facility] [address] [place] [address] Dr. Raul Owens TSHon 10-14-2021 TSH 0.053 uIU/mL Critically low 0.358-3.740 [facility] Comment on above: Performed By: #### F T3, T4, CMP, TSH, LIPID #### [facility] [address] [place] [address] Dr. Raul Owens TSH RANGE SEE BELOW Normal [facility] Comment on above: Result Comment: <0.3 4 UIU/ml HYPERTHYROID 0.34-5.60 UIU/ml EUTHYROID >5.60 UIU/ml HYPOTHYROID Performed By: #### F T3, T4, CMP, TSH, LIPID #### [facility] [address] [place] [address] Dr. Raul Owens VITAMIN D 25 OHon 10-14-2021 VIT D 25-OH 21.2 ng/mL Normal [facility] Comment on above: Performed By: #### V ITAD #### [facility] [address] [place] [address] Dr. Raul Owens VIT D RANGES SEE BELOW Normal [facility] Comment on above: Result Comment: <20 ng/mL Vit D deficient 20 - <30 ng/mL Vit D insufficient 30 - 100 ng/mL Vit D sufficient >100 ng/mL Potential Toxicity Performed By: #### V ITAD #### [facility] [address] [address] [address] Raul Owens Ambulatory Clinical Summaryo n 05-19-2021 Ambulatory Clinical Summary {[id number]}CD:[id number] Normal [facility] General Surgery Office/Clini c Noteon 05-19-2021 General Surgery Office/Clinic Note Chief Complaint follow up in-office excision lipoma HPI Staff 11 day post operative follow up post in-office excision lipoma right upper arm. Denies pain, bleeding or drainage. History of Present Illness 11 days s/p excision of left upper extremity lipoma; doing well, mild soreness, no drainage; pathology consistent with lipoma. Review of Systems ROS - Provider Constitutional: no fever, no sweats, no weight loss. Eyes: no glasses, no blurred vision, no visual loss. ENMT: no dentures, no hoarseness, no swallowing difficulties, no hearing loss, no ear infection(s), no nose bleeds. Cardiovascular: normal blood pressure, no chest pain, regular heartbeat, no heart murmur. Respiratory: no shortness of breath, no cough, no asthma, no wheezing. Gastrointestinal: no nausea, no vomiting, no diarrhea, no constipation, no blood in stool, no change in bowel habits, no abdominal pain, no hepatitis. Genitourinary: no kidney stones, no urine infection, no dysuria. Musculoskeletal: no pain, no weakness. Skin: no changing moles, no rash, no skin lumps. Neurologic: no seizures, no epilepsy, no headache. Psychiatric: no emotional or psychiatric problem. Heme/Lymph: no bleeding problems, no anemia, no blood clots, no transfusions. Allergy/Immunologic: no swollen lymph nodes/glands, no IV drug abuse. Other: Additional ROS info: Except as noted in the above Review of Systems and in the History of Present Illness, all other systems have been reviewed and are negative or noncontributory. Physical Exam Vitals & Measurements T: 36.5 ?C(Temporal Artery) skin: right upper extremity incision healing well; resolving area of ecchymosis; no hematoma, no erythema or drainage. Assessment/Plan 1. Lipoma of arm (D17.21: Benign lipomatous neoplasm of skin and subcutaneous tissue of right arm) doing well, call with problems/questions. Follow-up With When Contact Information AMAIRANI CHRIS, Kei Shea, LYNDON Only if needed [address] [place] [address]- Additional Instructions: Problem List/Past Medical History Ongoing BMI 22.0-22.9, adult Dyshidrotic eczema Hypothyroidism Lipoma of arm Migraine Mitral valve prolapse Historical No qualifying data Procedure/Surgical History Excision of lipoma (05/08/2021), Nasal septoplasty. Medications levothyroxine 100 mcg (0.1 mg) Tab, 100 mcg= 1 tab(s), Oral, Daily Allergies Avelox (Myalgia, Rash) Naprosyn (GI bleeding) Social History Alcohol Current, 1-2 times per week, 04/29/2021 Substance Abuse - Denies Substance Abuse, 04/29/2021 Tobacco Never (less than 100 in lifetime) Tobacco Use:. Never Smokeless Tobacco Use:., 04/29/2021 Family History Acute myocardial infarction: Mother. Cardiac arrhythmia: Father. Crohn's disease: Father. Normal [facility] Comment on above: Result Comment: Elec tronically Signed By: AMAIRANI CHRIS, Kei Shea\.br\Date and Time Signed: 05/19/21 16:24 EST Pathology Noteon 05-13-2021 Pathology Note [id number] 2 [id number]:127 Normal [facility] General Surgery Office/Clini c Noteon 05-10-2021 General Surgery Office/Clinic Note Chief Complaint in-office excisional biopsy HPI Staff Presents for in-office excisional biopsy lipoma right upper arm. History of Present Illness here for excision lipoma right upper extremity; no changes since recent evaluation. Review of Systems ROS - Provider Constitutional: no fever, no sweats, no weight loss. Eyes: no glasses, no blurred vision, no visual loss. ENMT: no dentures, no hoarseness, no swallowing difficulties, no hearing loss, no ear infection(s), no nose bleeds. Cardiovascular: normal blood pressure, no chest pain, regular heartbeat, no heart murmur. Respiratory: no shortness of breath, no cough, no asthma, no wheezing. Gastrointestinal: no nausea, no vomiting, no diarrhea, no constipation, no blood in stool, no change in bowel habits, no abdominal pain, no hepatitis. Genitourinary: no kidney stones, no urine infection, no dysuria. Musculoskeletal: no pain, no weakness. Skin: no changing moles, no rash, yes skin lumps. Neurologic: no seizures, no epilepsy, no headache. Psychiatric: no emotional or psychiatric problem. Heme/Lymph: no bleeding problems, no anemia, no blood clots, no transfusions. Allergy/Immunologic: no swollen lymph nodes/glands, no IV drug abuse. Other: Additional ROS info: Except as noted in the above Review of Systems and in the History of Present Illness, all other systems have been reviewed and are negative or noncontributory. Physical Exam Vitals & Measurements T: 36.2 ?C(Temporal Artery) skin: right upper extremity with 2.5 cm lipoma Procedure patient brought to procedure room, placed in supine position, right arm lesion prepped and draped in sterile fashion, area anesthetized with 1 % lidocaine; 2 cm incision made over palpable lipoma; area excised and sent to pathology; incision closed with 4-0 polysorb subcuticular sutures; tolerated well, EBL< 2 ml. Assessment/Plan 1. Lipoma of arm (D17.21: Benign lipomatous neoplasm of skin and subcutaneous tissue of right arm) excised under local anesthesia, tolerated well; follow up in 7-10 days for wound check. Follow-up No qualifying data available Problem List/Past Medical History Ongoing BMI 22.0-22.9, adult Dyshidrotic eczema Hypothyroidism Lipoma of arm Migraine Mitral valve prolapse Historical No qualifying data Procedure/Surgical History Excision of lipoma (05/08/2021), Nasal septoplasty. Medications levothyroxine 100 mcg (0.1 mg) Tab, 100 mcg= 1 tab(s), Oral, Daily Allergies Avelox (Myalgia, Rash) Naprosyn (GI bleeding) Social History Alcohol Current, 1-2 times per week, 04/29/2021 Substance Abuse - Denies Substance Abuse, 04/29/2021 Tobacco Never (less than 100 in lifetime) Tobacco Use:. Never Smokeless Tobacco Use:., 04/29/2021 Family History Acute myocardial infarction: Mother. Cardiac arrhythmia: Father. Crohn's disease: Father. Normal [facility] Comment on above: Result Comment: Elec tronically Signed By: AMAIRANI CHRIS, Kei Shea\.br\Date and Time Signed: 05/10/21 19:42 EST Ambulatory Clinical Summaryo n 05-08-2021 Ambulatory Clinical Summary {[id number]}CD:[id number] Normal [facility] [place] [facility] [place] 05[place] Georgiana Cam, [facility] [address] Re: PATRICIA KNUTSON Date of : 1970 Thank you for your referral of Patricia Knutson who was seen on consultation on 04/29/2021 for lipoma /cyst right posterior arm. An excisional biopsy is planned. I have enclosed my consultation notes for your review. I will be happy to follow Patricia. Sincerely, Kei Espinoza MD General Surgery [facility] Ambulatory Clinical Summaryo n 04-29-2021 Ambulatory Clinical Summary {[id number]}CD:[id number] [facility] Ambulatory Clinical Summary {[id number]}CD:[id number] [facility] Physician Referralon 021 Physician Referral [id number]:127 [facility] Encounters Encounter Date Encounter Type Care Provider Facility Start: 12-27-2023 End: 12-27-2023 ambulatory PHILL A VISCI Not Available Start: 11-18-2023 End: 11-18-2023 ambulatory PHILL A VISCI Not Available Start: 11-16-2022 End: 11-16-2022 ambulatory Georgiana Cam Facility:[facility] Start: 09-13-2022 End: 09-14-[address] GEORGIANA CAM . Facility:[facility] Start: 06-03-2022 Encounter for genera l adult medical examination without abnormal findings DR GEORGIANA CAM . [facility] Start: 05-27-2022 End: 05-28-[address] GEORGIANA CAM . Facility: Start: 05-27-2022 End: 05-28-2022 Encounter for general adult medical examination without abnormal findings DR GEORGIANA CAM . Facility:[facility] Start: 10-15-2021 End: 10-15-[address] GEORGIANA CAM . Facility:[facility] Start: 10-14-2021 End: 10-15-[address] GEORGIANA CAM . Facility: Payers Date Payer Category Payer Self-pay 1970 Unknown [id number] 2.16.84 [id number] 1970 Unknown [id number] 2.16.84 [id number] 1970 Unknown [id number] 2.16.84 [id number] 1970 Unknown [id number] 2.16.84 [id number] 1970 Unknown [id number] 2.16.84 [id number] 1970 Unknown [id number] 2.16.84 [id number] 1959 Unknown [id number] Unknown [id number] 2.16.8 [id number] Clinical Note 04-29-2021 Note Date & Type Note Facility 04-29-2021 Note Chief Complaint consultation for lipoma HPI Staff 50 year old female presents on consultation from Dr. Cam for lipoma vs cyst right posterior arm. Present several months. Gradual increase in size. Minimal discomfort with pressure. History of Present Illness 50 yo female referred for subcutaneous nodule right posterior upper arm, noticed 6 months ago, gradually increasing in size; no injury to area, no overlying skin changes; no h/o other similar lesions; no asa or NSAID use. Review of Systems PHQ Score Initial Depression Screen Score: 0 ROS - Provider Constitutional: no fever, no sweats, no weight loss. Eyes: no glasses, no blurred vision, no visual loss. ENMT: no dentures, no hoarseness, no swallowing difficulties, no hearing loss, no ear infection(s), no nose bleeds. Cardiovascular: normal blood pressure, no chest pain, regular heartbeat, no heart murmur. Respiratory: no shortness of breath, no cough, no asthma, no wheezing. Gastrointestinal: no nausea, no vomiting, no diarrhea, no constipation, no blood in stool, no change in bowel habits, no abdominal pain, no hepatitis. Genitourinary: no kidney stones, no urine infection, no dysuria. Musculoskeletal: no pain, no weakness. Skin: no changing moles, no rash, yes skin lumps. Neurologic: no seizures, no epilepsy, no headache. Psychiatric: no emotional or psychiatric problem. Heme/Lymph: no bleeding problems, no anemia, no blood clots, no transfusions. Allergy/Immunologic: no swollen lymph nodes/glands, no IV drug abuse. Other: Additional ROS info: Except as noted in the above Review of Systems and in the History of Present Illness, all other systems have been reviewed and are negative or noncontributory. Physical Exam Vitals & Measurements T: 36.4 ?C(Temporal Artery) HR: 72(Peripheral) RR: 16 BP: 126/88 HT: 162.56 cm HT: 162.6 cm WT: 59.9 kg WT: 59.9 kg BMI: 22.67 HEENT: normal conjunctiva, sclera clear, no scleral icterus, EOM intact, PERRLA, oral mucosa moist without lesions. Neck: trachea midline, no mass, symmetric, no thyromegaly or nodules, no adenopathy Respiratory: lungs CTA, respirations non labored. Cardiovascular: regular rate and rhythm, no murmur, no pedal edema or varicosities. Lymphatic: no cervical adenopathy, Musculoskeletal: normal gait, digits and nails without infection, nodes, cyanosis, clubbing. Skin: no rashes, no lesions, no ulcers, 2.5 cm subcutaneous nodule, soft, mobile, nontender, no overlying skin changes. Psychiatric/Neuro: oriented to time, place, person, judgement normal, affect appropriate for age, insight intact, no focal deficits. Tests: review of old records completed, Discussed surgical options, risks, and possible complications with patient. Assessment/Plan 1. Benign lipomatous neoplasm of skin and subcutaneous tissue of right arm (D17.21: Benign lipomatous neoplasm of skin and subcutaneous tissue of right arm) plan excisional biopsy under local anesthesia in the office for definitive diagnosis and treatment; informed consent obtained. Follow-up No qualifying data available Patient Education Lipoma Removal Problem List/Past Medical History Ongoing BMI 22.0-22.9, adult Dyshidrotic eczema Hypothyroidism Lipoma of arm Migraine Mitral valve prolapse Historical No qualifying data Procedure/Surgical History Nasal septoplasty. Medications levothyroxine 100 mcg (0.1 mg) Tab, 100 mcg= 1 tab(s), Oral, Daily Allergies Avelox (Myalgia, Rash) Naprosyn (GI bleeding) Social History Alcohol Current, 1-2 times per week, 04/29/2021 Substance Abuse - Denies Substance Abuse, 04/29/2021 Tobacco Never (less than 100 in lifetime) Tobacco Use:. Never Smokeless Tobacco Use:., 04/29/2021 Family History Acute myocardial infarction: Mother. Cardiac arrhythmia: Father. Crohn's disease: Father. [facility] Comment on above: Result Comment: Elec tronically Signed By: AMAIRANI CHRIS, Kei Skinner.erin\Date and Time Signed: 04/29/21 15:26 EST Clinical Note 04-29-2021 Note Date & Type Note Facility 04-29-2021 Note Dermatology Lipoma Removal Lipoma removal is a surgical procedure to remove a noncancerous (benign) tumor that is made up of fat cells (lipoma). Most lipomas are small and painless and do not require treatment. They can form in many areas of the body but are most common under the skin of the back, shoulders, arms, and thighs. You may need lipoma removal if you have a lipoma that is large, growing, or causing discomfort. Lipoma removal may also be done for cosmetic reasons. Tell a health care provider about: ? Any allergies you have. ? All medicines you are taking, including vitamins, herbs, eye drops, creams, and [id number] medicines. ? Any problems you or family members have had with anesthetic medicines. ? Any blood disorders you have. ? Any surgeries you have had. ? Any medical conditions you have. ? Whether you are or may be . What are the risks? Generally, this is a safe procedure. However, problems may occur, including: ? Infection. ? Bleeding. ? Allergic reactions to medicines. ? Damage to nerves or blood vessels near the lipoma. ? Scarring. What happens before the procedure? Staying hydrated Follow instructions from your health care provider about hydration, which may include: ? Up to 2 hours before the procedure ? you may continue to drink clear liquids, such as water, clear fruit juice, black coffee, and plain tea. Eating and drinking restrictions Follow instructions from your health care provider about eating and drinking, which may include: ? 8 hours before the procedure ? stop eating heavy meals or foods such as meat, fried foods, or fatty foods. ? 6 hours before the procedure ? stop eating light meals or foods, such as toast or cereal. ? 6 hours before the procedure ? stop drinking milk or drinks that contain milk. ? 2 hours before the procedure ? stop drinking clear liquids. Medicines ? Ask your health care provider about: ? Changing or stopping your regular medicines. This is especially important if you are taking diabetes medicines or blood thinners. ? Taking medicines such as aspirin and ibuprofen. These medicines can thin your blood. Do not take these medicines before your procedure if your health care provider instructs you not to. ? You may be given antibiotic medicine to help prevent infection. General instructions ? Ask your health care provider how your surgical site will be marked or identified. ? You will have a physical exam. Your health care provider will check the size of the lipoma and whether it can be moved easily. ? You may have imaging tests, such as: ? X-rays. ? CT scan. ? MRI. ? Plan to have someone take you home from the hospital or clinic. What happens during the procedure? ? To reduce your risk of infection: ? Your health care team will wash or sanitize their hands. ? Your skin will be washed with soap. ? You will be given one or more of the following: ? A medicine to help you relax (sedative). ? A medicine to numb the area (local anesthetic). ? A medicine to make you fall asleep (general anesthetic). ? A medicine that is injected into an area of your body to numb everything below the injection site (regional anesthetic). ? An incision will be made over the lipoma or very near the lipoma. The incision may be made in a natural skin line or crease. ? Tissues, nerves, and blood vessels near the lipoma will be moved out of the way. ? The lipoma and the capsule that surrounds it will be from the surrounding tissues. ? The lipoma will be removed. ? The incision may be closed with stitches (sutures). ? A bandage (dressing) will be placed over the incision. What happens after the procedure? ? Do not drive for 24 hours if you received a sedative. ? Your blood pressure, heart rate, breathing rate, and blood oxygen level will be monitored until the medicines you were given have worn off. This information is not intended to replace advice given to you by your health care provider. Make sure you discuss any questions you have with your health care provider. Document Released: 08/05/2016 Document Revised: 01/13/2017 Document Reviewed: 08/05/2016 [email or web address] Patient Education ? 2020 [employer]. [facility] Summary Purpose Family History No Family History Records FoundNo Family History Records FoundNo Family History Records FoundNo Family History Records Found Advance Directives No Advanced Directives Records FoundNo Advanced Directives Records FoundNo Advanced Directives Records FoundNo Advanced Directives Records Found Additional Source Comments INFORMATION SOURCE (unrecogn ized section and content) DATE CREATED AUTHOR [facility]22/2021 [facility] DATE CREATED AUTHOR AUTHOR'S ORGANIZ ATION 09/19/2022 [facility] DATE CREATED AUTHOR AUTHOR'S ORGANIZ ATION 12/09/2022 [facility] DATE CREATED AUTHOR AUTHOR'S ORGANIZ ATION 12/31/2023 [facility] FOR RECORDS PERTAINING TO PATIENTS WHO ARE OR HAVE BEEN ENROLLED IN A CHEMICAL DEPENDENCY/SUBSTANCEABUSE PROGRAM, SOME INFORMATION MAY BE OMITTED. This clinical summary was aggregated from multiple sources. Caution should be exercised in using it in the provision of clinical care. This summary normalizes information from multiple sources, and as a consequence, information in this document may materially change the coding, format and clinical context of patient data. In addition, data may be omitted in some cases. CLINICAL DECISIONS SHOULD BE BASED ON THE PRIMARY CLINICAL RECORDS. [employer] provides no warranty or guarantee of the accuracy or completeness of information in this document.
--- NOTE | 2024-02-24 09:06 | XR_ITS ---
The [address] [address] Patient Name: PATRICIA CASTRO MRN: [id number] date: 1970 Sex: F Assigned Patient Location: [facility] Current Patient Location: [facility] Accession/Order Number: [id number] Exam Date: 02/24/2024 09:10 Report Date: 02/27/2024 13:01 At the request of: GEORGIANA TRUJILLO Procedure: XR foot LT min 3V PROCEDURE: XR foot LT min 3V COMPARISON: None. HISTORY: Pain in left foot, M79.672 FINDINGS: BONES:Plantar enthesopathic spurring of the calcaneus. No acute fracture or dislocation SOFT TISSUES:Negative. No visible soft tissue swelling. EFFUSION:None visible. OTHER: Negative. XR/XR foot LT min 3V IMPRESSION: Plantar calcaneal enthesopathic spurring Electronically authenticated by: BECKY PACHECO Date: 02/27/2024 13:01
== END 2024-02-24 08:56 | disposition home or self-care (01) ==
LOC: RAD 08:57
PROVIDERS: Family Provider Obstetrics & Gynecology; PCP Family Medicine; Visit Provider Family Medicine
DX: M79.672 Pain in left foot (principal); M77.32 Calcaneal spur, left foot
CPT/HCPCS: 73630

== ENCOUNTER 2024-03-26 16:24 | Outpatient (RCR) | payer OTHER, SELFPAY | END 2024-04-16 09:33 | disposition home or self-care (01) | LOC: PT 16:24 | PROVIDERS: Family Provider Obstetrics & Gynecology; PCP Family Medicine; Visit Provider Podiatrist Foot & Ankle Surgery | DX: M72.2 Plantar fascial fibromatosis (principal) | CPT/HCPCS: 97026; 97035; 97110; 97112; 97140; 97161 ==

== ENCOUNTER 2024-08-21 09:13 | Outpatient (OUT) | payer OTHER, SELFPAY ==
--- OUTSIDE RECORDS SUMMARY | 2024-08-21 09:25 | XMS_ITS | CCD ---
Author Organization [facility] Care Team Providers Care Supervisor Compressed Yeast Name Role Phone HOY ., DR STONER [...] IS VERY IMPORTANT TO YOUR HEALTH. THE [employer] GUIDELINES RECOMMEND THAT WOMEN 40 [...] Basophils (Bld) [#/Vol] 0.0 10*3/uL Normal 0.0-0.2 [facility] Comment on above: Result Comment: PERF ORMED BY: [place] [address] PATHOLOGIST HRBP TREY WILBURN M.D. Performed By: #### C BC #### [address] Basophils/100 WBC (Bld) 0.5 % Normal . [facility] Comment on above: Performed By: #### C BC #### [facility] [address] [place] [address] Eosinophils (Bld) [#/Vol] 0.2 10*3/uL Normal 0.0-0.45 [facility] Comment on above: Performed By: #### C BC #### [place] [address] [place] Eosinophils/100 WBC (Bld) 3.0 % Normal . [facility] Comment on above: Performed By: #### C BC #### [address] Erythrocyte distribution width (RBC) [Ratio] 13.5 % Normal 11.9-15.3 [facility] Comment on above: Performed By: #### C BC #### [address] Hematocrit (Bld) [Volume fraction] 38.5 % Normal 34.0-46.4 [facility] Comment on above: Performed By: #### C BC #### [address] Hemoglobin (Bld) [Mass/Vol] 13.0 g/dL Normal 11.8-15.4 [facility] Comment on above: Performed By: #### C BC #### [address] Lymphocytes (Bld) [#/Vol] 1.4 10*3/uL Normal 1.00-4.8 [facility] Comment on above: Performed By: #### C BC #### [address] Lymphocytes/100 WBC (Bld) 24.7 % Normal . [facility] Comment on above: Performed By: #### C BC #### [address] MCH (RBC) [Entitic mass] 31.5 pg Normal 24.7-34.3 [facility] Comment on above: Performed By: #### C BC #### [address] MCV (RBC) [Entitic vol] 93.7 fL Normal 80-100 [facility] Comment on above: Performed By: #### C BC #### [address] Mean Corpuscular HGB Conc 33.7 g/dL Normal 32.0-35.0 [facility] Comment on above: Performed By: #### C BC #### [address] Monocytes (Bld) [#/Vol] 0.4 10*3/uL Normal 0.0-0.8 [facility] Comment on above: Performed By: #### C BC #### [address] Monocytes/100 WBC (Bld) 7.4 % Normal . [facility] Comment on above: Performed By: #### C BC #### [address] Neutrophils (Bld) [#/Vol] 3.7 10*3/uL Normal 1.8-7.7 [facility] Comment on above: Performed By: #### C BC #### [address] Neutrophils/100 WBC (Bld) 64.4 % Normal . [facility] Comment on above: Performed By: #### C BC #### [address] NRBC% 0.1 /100{WBC} Normal 0-0.5 [facility] Comment on above: Performed By: #### C BC #### [address] Platelet mean volume (Bld) [Entitic vol] 9.3 fL Normal 6.3-10.7 [facility] Comment on above: Performed By: #### C BC #### [address] Platelets (Bld) [#/Vol] 228 10*3/uL Normal 150-450 [facility] Comment on above: Performed By: #### C BC #### [address] RBC (Bld) [#/Vol] 4.11 10*6/uL Normal 3.60-5.00 [facility] Comment on above: Performed By: #### C BC #### [facility] [address] WBC (Bld) [#/Vol] 5.7 10*3/uL Normal 3.8-11.6 [facility] Comment on above: Performed By: #### C BC #### [facility] [address] [place] [address] ECG 12 lead ECGon 11-16-2022 ECG 12 lead ECG [facility] Main [place] [address] [place] [address] Electrocardiograph Report Signed Patient: Patricia Knutson MR#: [id number] 5 : 1970 Acct:[id number] Age/Sex: 52 / F ADM Date: 11/16/22 Loc: [place] Room: Type: [facility] Attending Dr: Phill Gil DO Ordering Provider: [...] change was found Confirmed by ROSANA CHRIS [facility] ([id number]) on 11/16/2022 3:35:57 PM Referred By: PATRICIA Electronically Signed By:BARBARA WAYNE MD FAC Transcribed By: MUS Signed By Spencer Wayne MD 11/16/22 1535 Normal [facility] HCG,Urineon 11-16-2022 Beta HCG ( test) Ql (U) Negative Normal [facility] Comment on above: Result Comment: PERF ORMED BY: [place] [address] PATHOLOGIST HRBP TREY WILBURN M.D. Performed By: #### U HCG #### [facility] [id number] [facility] 11-16-2022 L - -------- Specimen: [id number] Received: 11/16/22 Status: TOMA Manning Num: [id number] Spec Type: Surgical Subm Dr: Phill Gil DO Tissues: A Endometrium - Curettings (EMC) Procedures: Pilar/Gallo L4 -------- Age/ Patient Sex Location Account Attending Physician -------- Patricia Knutson 52/F [place] [id number] Phill Gil DO -------- SPEC NUM: [id number] RECD: 11/16/22 STATUS: TOMA MANNING NUM: [id number] PRINCE: 11/16/[address]: Phill Gil DO ENTERED: 11/16/[address] [facility] [address]: SPEC TYPE: Surgical DEPT: S ORDERED: [...] as A1 to A5. -------- -------- Specimen: [id number] Received: 11/16/22 Status: TOMA Lamasdimas Num: [id number] Spec Type: Surgical Subm Dr: Phill Gil DO Tissues: A Endometrium - Curettings (EMC) Procedures: , Gross/Micro L4 -------- Patient: Patricia Knutson [id number] (Continued) -------- Signed (signature on file) Georgette Wayne MD 11/17/22 1412 [facility] MG MAMM SCREEN 3D BIJAN CADon 09-13-2022 MG MAMM SCREEN 3D BIJAN CAD Patient: PATRICIA KNUTSON. Exam Date: 09/13/2022 : 1970 Gender:F Ordering : DR GEORGIANA CAM . Admission #: [id number] Family : Order #: [id number] CLICK HERE TO VIEW EXAM RADIOLOGY REPORT [...] bladder cancer at age 51. LOCATION: [facility] BREAST COMPOSITION: Heterogeneously dense,which may obscure [...] M.D. on 09/13/2022 at 11:50 Normal [facility] CBC AUTO DIFFon 05-27-2022 BASO # 0.0 103/ul Normal 0.0-0.1 [facility] Comment on above: Performed By: #### C BC ####[facility] [address] [address]Dr. Raul Owens Basophils/100 WBC (Bld) 0.6 % Normal 0.2-2.0 [facility] Comment on above: Performed By: #### C BC ####[facility] [address] [place], [place] [address]Dr. Raul Owens EO # 0.2 103/ul Normal 0.0-0.7 [facility] Comment on above: Performed By: #### C BC ####[facility] [address] [place], [place] [address]Dr. Ralu Owens Eosinophils/100 WBC (Bld) 3.1 % Normal 0.9-7.0 [facility] Comment on above: Performed By: #### C BC ####[facility] [address] [place], [place] [address]Dr. Raul Owens Erythrocyte distribution width (RBC) [Ratio] 13.5 % Normal 11.0-15.0 [facility] Comment on above: Performed By: #### C BC ####[facility] Afoeneq[address] [place], [place] [address]Dr. Raul Owens Hematocrit (Bld) [Volume fraction] 39.6 % Normal 36.0-48.0 [facility] Comment on above: Performed By: #### C BC ####[facility] [address] [place], [place] [address]Dr. Raul Owens Hemoglobin (Bld) [Mass/Vol] 13.0 g/dL Normal 12.0-16.0 [facility] Comment on above: Performed By: #### C BC ####[facility] [address] [address]Dr. Raul Owens IG # 0.02 10e3/ul Normal 0.00-0.03 [facility] Comment on above: Performed By: #### C BC ####[facility] [address] [address]Dr. Raul Owens IG % 0.3 % Normal 0.0-0.5 [facility] Comment on above: Performed By: #### C BC ####[facility] [address] [place], [place] [address]Dr. Raul Owens LYMPH # 2.1 103/ul Normal 1.2-3.8 [facility] Comment on above: Performed By: #### C BC ####[facility] [address] [place], [place] [address]Dr. Raul Owens Lymphocytes/100 WBC (Bld) 31.0 % Normal 20.5-60.0 [facility] Comment on above: Performed By: #### C BC ####[facility] [address] [address]Dr. Raul Owens MANUAL DIFF REQ NO Normal [facility] Comment on above: Performed By: #### C BC ####[facility] [address] [place], [place] [address]Dr. Raul Owens MCH (RBC) [Entitic mass] 30.4 pg Normal 26.7-34.0 [facility] Comment on above: Performed By: #### C BC ####[facility] R[address] [place], [place] [address]DrGiovanni Owens MCHC (RBC) [Mass/Vol] 32.8 g/dL Normal 29.9-35.2 [facility] Comment on above: Performed By: #### C BC ####[facility] J[address] [place], [place] [address]Dr. Raul Owens MCV (RBC) [Entitic vol] 92.5 fL Normal 81.0-99.0 [facility] Comment on above: Performed By: #### C BC ####[facility] [address] [place], [place] [address]Dr. Raul Owens MONO # 0.5 103/ul Normal 0.3-0.8 [facility] Comment on above: Performed By: #### C BC ####[facility] [address] [place], [place] [address]Dr. Raul Roman Monocytes/100 WBC (Bld) 7.2 % Normal 1.7-12.0 [facility] Comment on above: Performed By: #### C BC ####[facility] U[address]och[address] [place], [place] [address]Dr. Raul Owens NEUT # 3.9 103/ul Normal 1.4-6.5 [facility] Comment on above: Performed By: #### C BC ####[facility] N[address] [place], [place] [address]Dr. Raul Roman Neutrophils/100 WBC (Bld) 57.8 % Normal 43.0-75.0 [facility] Comment on above: Performed By: #### C BC ####[facility] [address] [place], [place] [address]Dr. Raul Roman Platelet mean volume (Bld) [Entitic vol] 10.3 fL Normal 9.5-13.5 [facility] Comment on above: Performed By: #### C BC ####[facility] [address] [place], [place] [address]Dr. Raul Roman PLT 263 103/ul Normal 150-450 [facility] Comment on above: Performed By: #### C BC ####[facility] E[address] [place], [place] [address]Dr. Danielleroseanna Roman RBC 4.28 106/ul Normal 4.20-5.40 [facility] Comment on above: Performed By: #### C BC ####[facility] [address] [place], [place] [address]Dr. Raul Owens WBC 6.8 103/ul Normal 4.0-11.0 [facility] Comment on above: Performed By: #### C BC ####[facility] [address] [place] [address]Dr. Raul Owens FREE THYROXINE INDEX T7on FTI 3.28 Normal 1.30-4.50 [facility] Comment on above: Performed By: #### L IPID, TSH, CMP, T7 ####[facility] [address] [id number]. Raul Owens T3U 36.0 % Normal 30.0-39.0 [facility] Comment on above: Performed By: #### L IPID, TSH, CMP, T7 ####[facility] [address] [address]Dr. Raul Owens T4 [Mass/Vol] 9.10 ug/dL Normal 4.80-13.90 [facility] Comment on above: Performed By: #### L IPID, TSH, CMP, T7 ####[facility] [address] [address]Dr. Raul Owens GLYCOHEMOGLOBIN A1Con 2021 ADA RECOMMENDATION SEE BELOW Normal [facility] Comment on above: Result Comment: ADA RECOMMENDED LIMIT 4.0 - 6.0 ADA THERAPEUTIC TARGET < 7.0 ACTION SUGGESTED > 7.0 Performed By: #### A 1C #### [facility] [address] [address] [address] Raul Owens Glucose [Mass/Vol] 114 mg/dL Normal [facility] Comment on above: Performed By: #### A 1C #### [facility] [address] [address] [address] Raul Owens HbA1c (Bld) [Mass fraction] 5.6 % Normal 4.5-6.2 [facility] Comment on above: Performed By: #### A 1C #### [facility] [address] [address] [address] Raul Owens IRONon 05-27-2022 Iron [Mass/Vol] 84.0 ug/dL Normal 50.0-170.0 [facility] Comment on above: Performed By: #### I KANNAN, VITAD ####[facility] [address] [id number]. Danielleroseanna Roman LIPID PROFILEon 05-27-2022 CHOL-HDL RATIO NORM SEE BELOW Normal [facility] Comment on above: Result Comment: 3.3 - 4.4 LOW RISK 4.4 - 7.1 AVERAGE RISK 7.1 - 11.0 MODERATE RISK >11.0 HIGH RISK Performed By: #### L IPID, TSH, CMP, T7 ####[facility] [address] [place], [place] [address]Go. Danielleroseanna Roman Cholesterol [Mass/Vol] 151 mg/dL Normal <=200 [facility] Comment on above: Performed By: #### L IPID, TSH, CMP, T7 ####[facility] [address] [id number]. Raul Owens Cholesterol in HDL [Mass/Vol] 55 mg/dL Normal 40-60 [facility] Comment on above: Performed By: #### L IPID, TSH, CMP, T7 ####[facility] [address] [place] [id number]. Raul Owens Cholesterol in LDL [Mass/Vol] 79.4 mg/dL Normal [facility] Comment on above: Performed By: #### L IPID, TSH, CMP, T7 ####[facility] [address] [id number]. Raul Owens Cholesterol.total/Cho lesterol in HDL [Mass ratio] 2.7 {ratio} Normal [facility] Comment on above: Performed By: #### L IPID, TSH, CMP, T7 ####[facility] [address] [place] [id number]. Raul Owens HDL NORMAL > or = 60 mg/dl - LO W CARDIOVASCULAR RISK <40 mg/dl - HIGH CARDIOVASCULAR RISK Normal [facility] Comment on above: Performed By: #### L IPID, TSH, CMP, T7 ####[facility] [address] [place] [id number] Owens LDL CALC NORMAL SEE BELOW Normal [facility] Comment on above: Result Comment: <100 mg/dl OPTIMAL 100 - 129 mg/dl NEAR OR ABOVE OPTIMAL 130 - 159 mg/dl BORDERLINE HIGH 160 - 189 mg/dl HIGH >190 mg/dl VERY HIGH Performed By: #### L IPID, TSH, CMP, T7 ####[facility] [address] [place], [place] [address]SsDr. Raul Owens Triglyceride [Mass/Vol] 83 mg/dL Normal <=150 [facility] Comment on above: Performed By: #### L IPID, TSH, CMP, T7 ####[facility] [address] [place], [place] [address]Dr. Raul Owens VLDL CALC 16.6 mg/dL Normal [facility] Comment on above: Performed By: #### L IPID, TSH, CMP, T7 ####[facility] [address] [place], [place] [address]FxDr. Raul Owens PROF 14(COMP METB)on 022 Albumin [Mass/Vol] 3.6 g/dL Normal 3.4-5.0 [facility] Comment on above: Performed By: #### L IPID, TSH, CMP, T7 #### [facility] [address] [address] [address] Raul Owens Albumin/Globulin [Mass ratio] 1.1 {ratio} Normal [facility] Comment on above: Performed By: #### L IPID, TSH, CMP, T7 #### [facility] [address] [address] [address] Raul Owens ALP [Catalytic activity/Vol] 61 U/L Normal 46-116 [facility] Comment on above: Performed By: #### L IPID, TSH, CMP, T7 #### [facility] [address] [address] [address] Raul Owens ALT [Catalytic activity/Vol] 11 U/L Critically low 14-59 [facility] Comment on above: Performed By: #### L IPID, TSH, CMP, T7 #### [facility] [address] [address] [address] Raul Owens Anion gap [Moles/Vol] 10.0 mmol/L Normal Th [facility] Comment on above: Performed By: #### L IPID, TSH, CMP, T7 #### [facility] [address] [address] [address] Raul Owens AST [Catalytic activity/Vol] 15 U/L Normal 15-37 [facility] Comment on above: Performed By: #### L IPID, TSH, CMP, T7 #### [facility] [address] [address] [address] Raul Owens Bilirubin [Mass/Vol] 0.3 mg/dL Normal 0.2-1.0 [facility] Comment on above: Performed By: #### L IPID, TSH, CMP, T7 #### [facility] [address] [address] [address] Raul Owens Calcium [Mass/Vol] 8.6 mg/dL Normal 8.5-10.1 [facility] Comment on above: Performed By: #### L IPID, TSH, CMP, T7 #### [facility] [address] [address] [address] Raul Owens Chloride [Moles/Vol] 104 mmol/L Normal 98-107 [facility] Comment on above: Performed By: #### L IPID, TSH, CMP, T7 #### [facility] [address] [place] [address] Dr. Raul Owens CO2 [Moles/Vol] 28.5 mmol/L Normal 21.0-32.0 [facility] Comment on above: Performed By: #### L IPID, TSH, CMP, T7 #### [facility] [address] [address] [address] Raul Owens Creatinine [Mass/Vol] 0.74 mg/dL Normal 0.55-1.02 [facility] Comment on above: Performed By: #### L IPID, TSH, CMP, T7 #### [facility] [address] [address] [address] Raul Owens EGFR-AF DUTCH >60 Normal >=60 [facility] Comment on above: Performed By: #### L IPID, TSH, CMP, T7 #### [facility] [address] [address] [address] Raul Owens EGFR-NON AF DUTCH >60 Normal >=60 [facility] Comment on above: Performed By: #### L IPID, TSH, CMP, T7 #### [facility] [address] [address] [address] Raul Owens Globulin (S) [Mass/Vol] 3.3 g/dL Normal [facility] Comment on above: Performed By: #### L IPID, TSH, CMP, T7 #### [facility] [address] [address] [address] Raul Owens Glucose [Mass/Vol] 99 mg/dL Normal 74-106 [facility] Comment on above: Performed By: #### L IPID, TSH, CMP, T7 #### [facility] [address] [address] [address] Raul Owens Potassium [Moles/Vol] 4.5 mmol/L Normal 3.5-5.1 [facility] Comment on above: Performed By: #### L IPID, TSH, CMP, T7 #### [facility] [address] [address] [address] Raul Owens Protein [Mass/Vol] 6.9 g/dL Normal 6.4-8.2 [facility] Comment on above: Performed By: #### L IPID, TSH, CMP, T7 #### [facility] [address] [address] [address] Raul Owens Sodium [Moles/Vol] 138 mmol/L Normal 136-145 [facility] Comment on above: Performed By: #### L IPID, TSH, CMP, T7 #### [facility] [address] [place] [address] Dr. Raul Owens Urea nitrogen [Mass/Vol] 11.0 mg/dL Normal 7.0-18.0 [facility] Comment on above: Performed By: #### L IPID, TSH, CMP, T7 #### [facility] [address] [address] [address] Raul Owens Urea nitrogen/Creatinine [Mass ratio] 14.9 mg/mg Normal [facility] Comment on above: Performed By: #### L IPID, TSH, CMP, T7 #### [facility] [address] [address] [address] Raul Owens TSHon 05-27-2022 TSH 0.107 uIU/mL Critically low 0.358-3.740 [facility] Comment on above: Performed By: #### L IPID, TSH, CMP, T7 #### [facility] [address] [address] [address] Raul Owens VITAMIN D 25 OHon 05-27-2022 VIT D 25-OH 21.7 ng/mL Normal [facility] Comment on above: Performed By: #### I KANNAN VITAD ####[facility] [address] [place], [place] [address]DrGiovanni Owens VIT D RANGES SEE BELOW Normal [facility] Comment on above: Result Comment: <20 ng/mL Vit D deficient 20 - <30 ng/mL Vit D insufficient 30 - 100 ng/mL Vit D sufficient >100 ng/mL Potential Toxicity Performed By: #### I KANNAN VITAD ####[facility] [address] [place], [place] [address]DrGiovanni Owens OCC BLD IMMUNO SCREENon 10-04 OCCULT BLOOD Negative Normal NEGATIVE [facility] Comment on above: Performed By: #### O BSCRN ####[facility] [address] [place] [address]DrGiovanni Owens CBC AUTO DIFFon 10-14-2021 BASO # 0.0 103/ul Normal 0.0-0.1 [facility] Comment on above: Performed By: #### C BC ####[facility] [address] [place] [address]DrGiovanni Owens Basophils/100 WBC (Bld) 0.7 % Normal 0.2-2.0 [facility] Comment on above: Performed By: #### C BC ####[facility] [address] [place] [address]Dr. Raul Owens EO # 0.2 103/ul Normal 0.0-0.7 [facility] Comment on above: Performed By: #### C BC ####[facility] [address] [place], [place] [address]Dr. Raul Owens Eosinophils/100 WBC (Bld) 5.2 % Normal 0.9-7.0 [facility] Comment on above: Performed By: #### C BC ####[facility] [address] [place], [place] [address]Dr. Raul Owens Erythrocyte distribution width (RBC) [Ratio] 13.3 % Normal 11.0-15.0 [facility] Comment on above: Performed By: #### C BC ####[facility] [address] [place], [place] [address]Dr. Raul Owens Hematocrit (Bld) [Volume fraction] 40.3 % Normal 36.0-48.0 [facility] Comment on above: Performed By: #### C BC ####[facility] [address] [place], [place] [address]Dr. Raul Owens Hemoglobin (Bld) [Mass/Vol] 13.0 g/dL Normal 12.0-16.0 [facility] Comment on above: Performed By: #### C BC ####[facility] [address] [place], [place] [address]Dr. Raul Owens IG # 0.01 10e3/ul Normal 0.00-0.03 [facility] Comment on above: Performed By: #### C BC ####[facility] [address] [place], [place] [address]Dr. Raul Owens IG % 0.2 % Normal 0.0-0.5 [facility] Comment on above: Performed By: #### C BC ####[facility] [address] [place], [place] [address]Dr. Raul Owens LYMPH # 1.3 103/ul Normal 1.2-3.8 [facility] Comment on above: Performed By: #### C BC ####[facility] [address] [place] [id number]. Raul Roman Lymphocytes/100 WBC (Bld) 27.9 % Normal 20.5-60.0 [facility] Comment on above: Performed By: #### C BC ####[facility] [address] [place] [address]Dr. Danielleroseanna Owens MANUAL DIFF REQ NO Normal [facility] Comment on above: Performed By: #### C BC ####[facility] [address] [place] [id number]. Raul Roman MCH (RBC) [Entitic mass] 30.8 pg Normal 26.7-34.0 [facility] Comment on above: Performed By: #### C BC ####[facility] [address] [place], [place] [address]Dr. Raul Roman MCHC (RBC) [Mass/Vol] 32.3 g/dL Normal 29.9-35.2 [facility] Comment on above: Performed By: #### C BC ####[facility] [address] [place], [place] [address]Dr. Danielleroseanna Owens MCV (RBC) [Entitic vol] 95.5 fL Normal 81.0-99.0 [facility] Comment on above: Performed By: #### C BC ####[facility] [address] [place], [place] [address]Dr. Raul Owens MONO # 0.4 103/ul Normal 0.3-0.8 [facility] Comment on above: Performed By: #### C BC ####[facility] [address] [place], [place] [address]Dr. Danielleroseanna Owens Monocytes/100 WBC (Bld) 7.8 % Normal 1.7-12.0 [facility] Comment on above: Performed By: #### C BC ####[facility] [address] [place], [place] [address]Dr. Raul Owens NEUT # 2.7 103/ul Normal 1.4-6.5 [facility] Comment on above: Performed By: #### C BC ####[facility] [address] [address]Dr. Raul Owens Neutrophils/100 WBC (Bld) 58.2 % Normal 43.0-75.0 [facility] Comment on above: Performed By: #### C BC ####[facility] [address] [address]Dr. Raul Owens Platelet mean volume (Bld) [Entitic vol] 10.7 fL Normal 9.5-13.5 [facility] Comment on above: Performed By: #### C BC ####[facility] [address] [address]Dr. Raul Owens PLT 250 103/ul Normal 150-450 [facility] Comment on above: Performed By: #### C BC ####[facility] [address] [place] [address]Dr. Raul Owens RBC 4.22 106/ul Normal 4.20-5.40 [facility] Comment on above: Performed By: #### C BC ####[facility] [address] [place], [place] [address]Dr. Raul Owens WBC 4.6 103/ul Normal 4.0-11.0 [facility] Comment on above: Performed By: #### C BC ####[facility] [address] [place] [address]DrGiovanni Owens FREE T3on 10-14-2021 FREE T3 2.28 pg/mlL Normal 2.18-3.98 [facility] Comment on above: Performed By: #### F T3, T4, CMP, TSH, LIPID #### [facility] [address] [address] [address] Raul Owens GLYCOHEMOGLOBIN A1Con 2021 ADA RECOMMENDATION SEE BELOW Normal [facility] Comment on above: Result Comment: ADA RECOMMENDED LIMIT 4.0 - 6.0 ADA THERAPEUTIC TARGET < 7.0 ACTION SUGGESTED > 7.0 Performed By: #### A 1C ####[facility] [address] [address]Dr. Raul Owens Glucose [Mass/Vol] 114 mg/dL Normal [facility] Comment on above: Performed By: #### A 1C ####[facility] [address] [place], [place] [address]EuDr. Raul Owens HbA1c (Bld) [Mass fraction] 5.6 % Normal 4.5-6.2 [facility] Comment on above: Performed By: #### A 1C ####[facility] [address] [place], [place] [address]MrDr. Raul Owens LIPID PROFILEon 10-14-2021 CHOL-HDL RATIO NORM SEE BELOW Normal [facility] Comment on above: Result Comment: 3.3 - 4.4 LOW RISK 4.4 - 7.1 AVERAGE RISK 7.1 - 11.0 MODERATE RISK >11.0 HIGH RISK Performed By: #### F T3, T4, CMP, TSH, LIPID #### [facility] [address] [address] [address] Raul Owens Cholesterol [Mass/Vol] 159 mg/dL Normal <=200 [facility] Comment on above: Performed By: #### F T3, T4, CMP, TSH, LIPID #### [facility] [address] [address] [address] Raul Owens Cholesterol in HDL [Mass/Vol] 57 mg/dL Normal 40-60 [facility] Comment on above: Performed By: #### F T3, T4, CMP, TSH, LIPID #### [facility] [address] [address] [address] Raul Owens Cholesterol in LDL [Mass/Vol] 86.2 mg/dL Normal [facility] Comment on above: Performed By: #### F T3, T4, CMP, TSH, LIPID #### [facility] [address] [address] [address] Raul Owens Cholesterol.total/Cho lesterol in HDL [Mass ratio] 2.8 {ratio} Normal [facility] Comment on above: Performed By: #### F T3, T4, CMP, TSH, LIPID #### [facility] [address] [address] [address] Raul Owens HDL NORMAL > or = 60 mg/dl - LO W CARDIOVASCULAR RISK <40 mg/dl - HIGH CARDIOVASCULAR RISK Normal [facility] Comment on above: Performed By: #### F T3, T4, CMP, TSH, LIPID #### [facility] [address] [address] [address] Raul Owens LDL CALC NORMAL SEE BELOW Normal [facility] Comment on above: Result Comment: <100 mg/dl OPTIMAL 100 - 129 mg/dl NEAR OR ABOVE OPTIMAL 130 - 159 mg/dl BORDERLINE HIGH 160 - 189 mg/dl HIGH >190 mg/dl VERY HIGH Performed By: #### F T3, T4, CMP, TSH, LIPID #### [facility] [address] [address] [address] Raul Owens Triglyceride [Mass/Vol] 79 mg/dL Normal <=150 [facility] Comment on above: Performed By: #### F T3, T4, CMP, TSH, LIPID #### [facility] [address] [address] [address] Raul Owens VLDL CALC 15.8 mg/dL Normal [facility] Comment on above: Performed By: #### F T3, T4, CMP, TSH, LIPID #### [facility] [address] [address] [address] Raul Owens PROF 14(COMP METB)on 022 Albumin [Mass/Vol] 3.6 g/dL Normal 3.4-5.0 [facility] Comment on above: Performed By: #### F T3, T4, CMP, TSH, LIPID #### [facility] [address] [address] [address] Raul Owens Albumin/Globulin [Mass ratio] 1.1 {ratio} Normal [facility] Comment on above: Performed By: #### F T3, T4, CMP, TSH, LIPID #### [facility] [address] [address] [address] Raul Owens ALP [Catalytic activity/Vol] 48 U/L Normal 46-116 [facility] Comment on above: Performed By: #### F T3, T4, CMP, TSH, LIPID #### [facility] [address] [address] [address] Raul Owens ALT [Catalytic activity/Vol] 20 U/L Normal 14-59 [facility] Comment on above: Performed By: #### F T3, T4, CMP, TSH, LIPID #### [facility] [address] [address] [address] Raul Owens Anion gap [Moles/Vol] 10.0 mmol/L Normal [facility] Comment on above: Performed By: #### F T3, T4, CMP, TSH, LIPID #### [facility] [address] [place] [address] Dr. Raul Owens AST [Catalytic activity/Vol] 13 U/L Critically low 15-37 [facility] Comment on above: Performed By: #### F T3, T4, CMP, TSH, LIPID #### [facility] [address] [place] [address] Dr. Raul Owens Bilirubin [Mass/Vol] 0.6 mg/dL Normal 0.2-1.0 [facility] Comment on above: Performed By: #### F T3, T4, CMP, TSH, LIPID #### [facility] [address] [place] [address] Dr. Raul Owens Calcium [Mass/Vol] 8.7 mg/dL Normal 8.5-10.1 [facility] Comment on above: Performed By: #### F T3, T4, CMP, TSH, LIPID #### [facility] [address] [place] [address] Dr. Raul Owens Chloride [Moles/Vol] 104 mmol/L Normal 98-107 [facility] Comment on above: Performed By: #### F T3, T4, CMP, TSH, LIPID #### [facility] [address] [place] [address] Dr. Raul Owens CO2 [Moles/Vol] 28.4 mmol/L Normal 21.0-32.0 [facility] Comment on above: Performed By: #### F T3, T4, CMP, TSH, LIPID #### [facility] [address] [place] [address] Dr. Raul Owens Creatinine [Mass/Vol] 0.71 mg/dL Normal 0.55-1.02 [facility] Comment on above: Performed By: #### F T3, T4, CMP, TSH, LIPID #### [facility] [address] [address] [address] Raul Owens EGFR-AF DUTCH >60 Normal >=60 [facility] Comment on above: Performed By: #### F T3, T4, CMP, TSH, LIPID #### [facility] [address] [address] [address] Raul Owens EGFR-NON AF DUTCH >60 Normal >=60 [facility] Comment on above: Performed By: #### F T3, T4, CMP, TSH, LIPID #### [facility] [address] [address] [address] Raul Owens Globulin (S) [Mass/Vol] 3.4 g/dL Normal [facility] Comment on above: Performed By: #### F T3, T4, CMP, TSH, LIPID #### [facility] [address] [address] [address] Raul Owens Glucose [Mass/Vol] 99 mg/dL Normal 74-106 [facility] Comment on above: Performed By: #### F T3, T4, CMP, TSH, LIPID #### [facility] [address] [address] [address] Raul Owens Potassium [Moles/Vol] 4.4 mmol/L Normal 3.5-5.1 [facility] Comment on above: Performed By: #### F T3, T4, CMP, TSH, LIPID #### [facility] [address] [address] [address] Raul Owens Protein [Mass/Vol] 7.0 g/dL Normal 6.4-8.2 [facility] Comment on above: Performed By: #### F T3, T4, CMP, TSH, LIPID #### [facility] [address] [address] [address] Raul Owens Sodium [Moles/Vol] 138 mmol/L Normal 136-145 [facility] Comment on above: Performed By: #### F T3, T4, CMP, TSH, LIPID #### [facility] [address] [address] [address] Raul Owens Urea nitrogen [Mass/Vol] 9.0 mg/dL Normal 7.0-18.0 [facility] Comment on above: Performed By: #### F T3, T4, CMP, TSH, LIPID #### [facility] [address] [address] [address] Raul Owens Urea nitrogen/Creatinine [Mass ratio] 12.7 mg/mg Normal [facility] Comment on above: Performed By: #### F T3, T4, CMP, TSH, LIPID #### [facility] [address] [address] [address] Raul Owens T4on 10-14-2021 T4 [Mass/Vol] 10.00 ug/dL Normal 4.80-13.90 [facility] Comment on above: Performed By: #### F T3, T4, CMP, TSH, LIPID #### [facility] [address] [place] [address] Dr. Raul Owens TSHon 10-14-2021 TSH 0.053 uIU/mL Critically low 0.358-3.740 [facility] Comment on above: Performed By: #### F T3, T4, CMP, TSH, LIPID #### [facility] [address] [place] [address] Dr. Raul Owens TSH RANGE SEE BELOW Normal [facility] Comment on above: Result Comment: <0.3 4 UIU/ml HYPERTHYROID 0.34-5.60 UIU/ml EUTHYROID >5.60 UIU/ml HYPOTHYROID Performed By: #### F T3, T4, CMP, TSH, LIPID #### [facility] [address] [place] [address] Dr. Raul Owens VITAMIN D 25 OHon 10-14-2021 VIT D 25-OH 21.2 ng/mL Normal [facility] Comment on above: Performed By: #### V ITAD #### [facility] [address] [place] [address] Dr. Raul Owens VIT D RANGES SEE BELOW Normal [facility] Comment on above: Result Comment: <20 ng/mL Vit D deficient 20 - <30 ng/mL Vit D insufficient 30 - 100 ng/mL Vit D sufficient >100 ng/mL Potential Toxicity Performed By: #### V ITAD #### [facility] [address] [address] [address] Raul Owens Ambulatory Clinical Summaryo n 05-19-2021 Ambulatory Clinical Summary {[id number]}CD:[id number] Normal [facility] General Surgery Office/Clini c Noteon 05-19-2021 General [...] Shea, LYNDON Only if needed [address] [place] [address]- Additional Instructions: Problem List/Past Medical History Ongoing [...] Cardiac arrhythmia: Father. Crohn's disease: Father. Normal [facility] Comment on above: Result Comment: Elec tronically Signed By: AMAIRANI CHRIS, Kei Shea\.br\Date and Time Signed: 05/19/21 16:24 EST Pathology Noteon 05-13-2021 Pathology Note [id number] .[id number]:127 Normal [facility] General Surgery Office/Clini c Noteon 05-10-2021 General [...] Cardiac arrhythmia: Father. Crohn's disease: Father. Normal [facility] Comment on above: Result Comment: Elec tronically Signed By: AMAIRANI CHRIS, Kei Shea\.br\Date and Time Signed: 05/10/21 19:42 EST Ambulatory Clinical Summaryo n 05-08-2021 Ambulatory Clinical Summary {[id number]}CD:[id number] Normal [facility] [facility] May 05, 2021 Georgiana Cam, [facility] [place] [address] Re: PATRICIA KNUTSON Date of : 1970 Thank you for your referral of Patricia Knutson who was seen on consultation on 04/29/2021 for lipoma /cyst right posterior arm. An excisional biopsy is planned. I have enclosed my consultation notes for your review. I will be happy to follow Patricia. Sincerely, Kei Espinoza MD General Surgery [facility] Ambulatory Clinical Summaryo n 04-29-2021 Ambulatory Clinical Summary {[id number] [facility] Ambulatory Clinical Summary {[id number] [facility] Physician Referralon 021 Physician Referral [id number] .[id number]:127 [facility] Encounters Encounter Date Encounter Type Care Provider Facility Start: 12-27-2023 End: 12-27-2023 ambulatory PHILL A VISCI Not Available Start: 11-18-2023 End: 11-18-2023 ambulatory PHILL A VISCI Not Available Start: 11-16-2022 End: 11-16-2022 ambulatory Georgiana Cam Facility:[facility] Start: 09-13-2022 End: 09-14-[address] GEORGIANA CAM . Facility:[facility] Start: 06-03-2022 Encounter for genera l adult medical examination without abnormal findings DR GEORGIANA CAM . [facility] Start: 05-27-2022 End: 05-28-[address] GEORGIANA CAM . Facility: Start: 05-27-2022 End: 05-28-2022 Encounter for general adult medical examination without abnormal findings DR GEORGIANA CAM . Facility:[facility] Start: 10-15-2021 End: 10-15-[address] GEORGIANA CAM . Facility:[facility] Start: 10-14-2021 End: 10-15-[address] GEORGIANA CAM . Facility: Payers Date Payer Category Payer Self-pay 1970 Unknown [id number] 2.16.84 [id number] 1970 Unknown [id number] 2.16.84 [id number] 1970 Unknown [id number] 2.16.84 [id number] 1970 Unknown [id number] 2.16.84 [id number] 1970 Unknown [id number] 2.16.84 [id number] 1970 Unknown [id number] 2.16.84 [id number] 1959 Unknown [id number] Unknown [id number] 2.16.8 [id number] Clinical Note 04-29-2021 Note Date & Type [...] Mother. Cardiac arrhythmia: Father. Crohn's disease: Father. [facility] Comment on above: Result Comment: Elec tronically [...] including vitamins, herbs, eye drops, creams, and wxas-yer-qfykafx medicines. ? Any problems you or family [...] 08/05/2016 Document Revised: 01/13/2017 Document Reviewed: 08/05/2016 [employer] Patient Education ? 2020 [employer]. [facility] Summary Purpose Family History No Family History Records FoundNo Family History Records FoundNo Family History Records FoundNo Family History Records Found Advance Directives No Advanced Directives Records FoundNo Advanced Directives Records FoundNo Advanced Directives Records FoundNo Advanced Directives Records Found Additional Source Comments INFORMATION SOURCE (unrecogn ized section and content) DATE CREATED AUTHOR [facility]22/2021 [facility] DATE CREATED AUTHOR AUTHOR'S ORGANIZ ATION 09/19/2022 [facility] DATE CREATED AUTHOR AUTHOR'S ORGANIZ ATION 12/09/2022 [facility] DATE CREATED AUTHOR AUTHOR'S ORGANIZ ATION 12/31/2023 [facility] FOR RECORDS PERTAINING TO PATIENTS WHO [...] BE BASED ON THE PRIMARY CLINICAL RECORDS. [employer] ([employer] provides no warranty or guarantee of the accuracy or completeness of information in this document.
[2024-08-21 09:36] LABS: Basophils Percent Auto 0.5 % (0.2-2.0); Eosinophils Absolute Auto 0.2 10^3/uL (0.0-0.7); Eosinophils Percent Auto 3.4 % (0.9-7.0); Hematocrit 42.5 % (36.0-48.0); Hemoglobin 14.3 g/dL (12.0-16.0); Immature Granulocytes Abs Auto 0.02 10^3/uL (0.00-0.03); Immature Granulocytes Pct Auto 0.3 % (0.0-0.5); Lymphocytes Absolute Auto 1.7 10^3/uL (1.2-3.8); Lymphocytes Percent Auto 26.4 % (20.5-60.0); Mean Corpuscular HGB Conc 33.6 g/dL (29.9-35.2); Mean Corpuscular Hemoglobin 31.3 pg (26.7-34.0); Monocytes Absolute Auto 0.6 10^3/uL (0.3-0.8); Monocytes Percent Auto 8.7 % (1.7-12.0); Neutrophils Absolute Auto 3.9 10^3/uL (1.4-6.5); Neutrophils Percent Auto 60.7 % (43.0-75.0); Platelet Count 266 10^3/uL (150-450); Red Blood Count 4.57 10^6/uL (4.20-5.40); Red Cell Distribution Width 13.7 % (11.0-15.0); White Blood Count 6.4 10^3/uL (4.0-11.0)
[2024-08-21 10:10] LABS: Alanine Aminotransferase 21 U/L (14-59); Albumin Level 3.7 g/dL (3.4-5.0); Alkaline Phosphatase 59 U/L (46-116); Aspartate Amino Transferase 16 U/L (15-37); BUN Creatinine Ratio 16.9; Bilirubin Total 0.5 mg/dL (0.2-1.0); Calcium 9.3 mg/dL (8.5-10.1); Carbon Dioxide 29.6 mmol/L (21.0-32.0); Chloride 102 mmol/L (98-107); Cholesterol 168 mg/dL (<=200); Estimated GFR (African America >60 (>=60 mL/min/1.73m^2); Estimated GFR (Non-African Ame >60 (>=60 mL/min/1.73m^2); Free T3 2.99 pg/mL (2.18-3.98); Globulin 3.6 g/dL; Glucose 97 mg/dL (74-106); HDL Cholesterol 56 mg/dL (40-60); LDL Cholesterol Calculated 90.6 mg/dL; Potassium 4.6 mmol/L (3.5-5.1); Sodium 136 mmol/L (136-145); Thyroid Stimulating Hormone 0.009 uIU/mL (0.358-3.740); Total Protein 7.3 g/dL (6.4-8.2); Triglycerides 107 mg/dL (<=150); VLDL CHOLESTEROL 21.4 mg/dL
[2024-08-21 10:33] LABS: Estimated Average Glucose 120 mg/dL; Glycohemoglobin A1C 5.8 % (4.5-6.2)
== END 2024-08-21 09:14 | disposition home or self-care (01) ==
LOC: LAB 09:14
PROVIDERS: Family Provider Obstetrics & Gynecology; PCP Family Medicine; Visit Provider Family Medicine
DX: Z00.00 Encounter for general adult medical examination without abnormal findings (principal)
CPT/HCPCS: 36415; 80053; 80061; 83036; 84436; 84443; 84481; 85025

== ENCOUNTER 2024-08-29 07:40 | Outpatient (OUT) | payer OTHER, SELFPAY ==
--- NOTE | 2024-08-29 07:35 | NM_ITS ---
Patient Name: PATRICIA CASTRO MR#: [id number] : 1970 Exam Date: 08/29/2024 Ordering Doctor: DR Sunil Cam . RADIOLOGY REPORT PROCEDURE: NM ADELA PERF SPECT REST STR COMPARISON: None. INDICATIONS: CHEST PAIN TECHNIQUE: Exam Description: Stress/Rest one day protocol gated SPECT Rest Imagin.4 mCi Tc-99m Cardiolite IV on 08/29/2024 Stress Imaging 31.6 mCi Tc-99m Cardiolite IV on 08/29/2024 Exercise Protocol: Bill Heart Rate (bpm): Rest: 81 Max: 181 PMHR: 109 Blood Pressure: Rest: 138/90 Max: 148/86 Exercise Time: Minutes: 6 Seconds: 43 Stage Reached: Stage: 3 Mets 9.2 Symptoms: Rest and peak stress ECG findings were pending and the exercise portion of the study was pending per attending physician [facility] . For more details, please see separate cardiac stress test report. FINDINGS: QUALITY OF STUDY: Good PERFUSION DEFECT: None LOCATION: N/A SIZE: N/A SEVERITY: N/A TYPE: N/A WALL MOTION: Normal wall motion LV SIZE: 56 mL. TID / TCD: 0.7 LVEF: Calculated EF 69%. SUMMARY: Myocardial perfusion imaging study is normal CONCLUSION: 1. Myocardial perfusion is normal with soft tissue attenuation 2. Global left ventricular systolic function is normal 3. No evidence of transient ischemic dilatation Dictated by: Clarke Salazar M.D. on 08/29/2024 at 14:21 Approved by: Clarke Salazar M.D. on 08/29/2024 at 14:24
--- OUTSIDE RECORDS SUMMARY | 2024-08-29 07:47 | XMS_ITS | CCD ---
Author Organization [facility]123Critical access hospital [facility] Care Team Providers Care Staff Nurse Icu Resource Team Name Role Phone HOY ., DR STONER [...] IS VERY IMPORTANT TO YOUR HEALTH. THE [employer] GUIDELINES RECOMMEND THAT WOMEN 40 [...] Basophils (Bld) [#/Vol] 0.0 10*3/uL Normal 0.0-0.2 [facility] Comment on above: Result Comment: PERF ORMED BY: [place] [address] PATHOLOGIST WATER TREATMENT SPECIALIST TREY WILBURN M.D. Performed By: #### C BC #### [address] Basophils/100 WBC (Bld) 0.5 % Normal . [facility] Comment on above: Performed By: #### C BC #### [facility] [address] [place] [address] Eosinophils (Bld) [#/Vol] 0.2 10*3/uL Normal 0.0-0.45 [facility] Comment on above: Performed By: #### C BC #### [place] [address] [place] Eosinophils/100 WBC (Bld) 3.0 % Normal . [facility] Comment on above: Performed By: #### C BC #### [address] Erythrocyte distribution width (RBC) [Ratio] 13.5 % Normal 11.9-15.3 [facility] Comment on above: Performed By: #### C BC #### [address] Hematocrit (Bld) [Volume fraction] 38.5 % Normal 34.0-46.4 [facility] Comment on above: Performed By: #### C BC #### [address] Hemoglobin (Bld) [Mass/Vol] 13.0 g/dL Normal 11.8-15.4 [facility] Comment on above: Performed By: #### C BC #### [address] Lymphocytes (Bld) [#/Vol] 1.4 10*3/uL Normal 1.00-4.8 [facility] Comment on above: Performed By: #### C BC #### [address] Lymphocytes/100 WBC (Bld) 24.7 % Normal . [facility] Comment on above: Performed By: #### C BC #### [address] MCH (RBC) [Entitic mass] 31.5 pg Normal 24.7-34.3 [facility] Comment on above: Performed By: #### C BC #### [address] MCV (RBC) [Entitic vol] 93.7 fL Normal 80-100 [facility] Comment on above: Performed By: #### C BC #### [address] Mean Corpuscular HGB Conc 33.7 g/dL Normal 32.0-35.0 [facility] Comment on above: Performed By: #### C BC #### [address] Monocytes (Bld) [#/Vol] 0.4 10*3/uL Normal 0.0-0.8 [facility] Comment on above: Performed By: #### C BC #### [address] Monocytes/100 WBC (Bld) 7.4 % Normal . [facility] Comment on above: Performed By: #### C BC #### [address] Neutrophils (Bld) [#/Vol] 3.7 10*3/uL Normal 1.8-7.7 [facility] Comment on above: Performed By: #### C BC #### [address] Neutrophils/100 WBC (Bld) 64.4 % Normal . [facility] Comment on above: Performed By: #### C BC #### [address] NRBC% 0.1 /100{WBC} Normal 0-0.5 [facility] Comment on above: Performed By: #### C BC #### [address] Platelet mean volume (Bld) [Entitic vol] 9.3 fL Normal 6.3-10.7 [facility] Comment on above: Performed By: #### C BC #### [address] Platelets (Bld) [#/Vol] 228 10*3/uL Normal 150-450 [facility] Comment on above: Performed By: #### C BC #### [address] RBC (Bld) [#/Vol] 4.11 10*6/uL Normal 3.60-5.00 [facility] Comment on above: Performed By: #### C BC #### [facility] [address] WBC (Bld) [#/Vol] 5.7 10*3/uL Normal 3.8-11.6 [facility] Comment on above: Performed By: #### C BC #### [facility] [address] [place] [address] ECG 12 lead ECGon 11-16-2022 ECG 12 lead ECG [facility] Main Margie [address] [place] [address] Electrocardiograph Report Signed Patient: Patricia Knutson MR#: [id number] 5 : 1970 Acct:[id number] Age/Sex: 52 / F ADM Date: 11/16/22 Loc: [place] Room: Type: [facility] Attending Dr: Phill Gil DO Ordering Provider: [...] change was found Confirmed by ROSANA [facility]IS [facility] ([id number]) on 11/16/2022 3:35:57 PM Referred By: PATRICIA Electronically Signed By:BARBAAR WAYNE MD FAC Transcribed By: MUS Signed By Spencer Wayne MD 11/16/22 1535 Normal [facility] HCG,Urineon 11-16-2022 Beta HCG ( test) Ql (U) Negative Normal [facility] Comment on above: Result Comment: PERF ORMED BY: [place] [address] PATHOLOGIST WATER TREATMENT SPECIALIST TREY WILBURN M.D. Performed By: #### U HCG #### [facility] [address] [place] [id number] [facility] [place] 11-16-2022 L - -------- Specimen: [id number] Received: 11/16/22 Status: TOMA Manning Num: [id number] Spec Type: Surgical Subm Dr: Phill Gil DO Tissues: A Endometrium - Curettings (EMC) Procedures: Pilar/Gallo L4 -------- Age/ Patient Sex Location Account Attending Physician -------- Patricia Knutson 52/F [place] [id number] Phill Gil DO -------- SPEC NUM: [id number] RECD: 11/16/22 STATUS: TOMA MANNING NUM: [id number] PRINCE: 11/16/[address]: Phill Gil DO ENTERED: 11/16/22 [facility] DR: SPEC TYPE: Surgical DEPT: S [...] as A1 to A5. -------- -------- Specimen: [id number] Received: 11/16/22 Status: TOMA Lamasdimas Num: [id number] Spec Type: Surgical Subm Dr: Phill Gil DO Tissues: A Endometrium - Curettings (EMC) Procedures: , Gross/Micro L4 -------- Patient: Patricia Knutson [id number] (Continued) -------- Signed (signature on file) Georgette Wayne MD 11/17/22 1412 [facility] MG MAMM SCREEN 3D BIJAN CADon 09-13-2022 MG MAMM SCREEN 3D BIJAN CAD Patient: PATRICIA KNUTSON. Exam Date: 09/13/2022 : 1970 Gender:F Ordering : DR GEORGIANA CAM . Admission #: [id number] Family : Order #: [id number] CLICK HERE TO VIEW EXAM RADIOLOGY REPORT [...] bladder cancer at age 51. LOCATION: [facility] BREAST COMPOSITION: Heterogeneously dense,which may obscure small [...] M.D. on 09/13/2022 at 11:50 Normal [facility] CBC AUTO DIFFon 05-27-2022 BASO # 0.0 103/ul Normal 0.0-0.1 [facility] Comment on above: Performed By: #### C BC ####[facility] [address] [place] [address]Dr. Raul Owens Basophils/100 WBC (Bld) 0.6 % Normal 0.2-2.0 [facility] Comment on above: Performed By: #### C BC ####[facility] [address] [place], [place] [address]Dr. Raul Owens EO # 0.2 103/ul Normal 0.0-0.7 [facility] Comment on above: Performed By: #### C BC ####[facility] [address] [place], [place] [address]Dr. Raul Owens Eosinophils/100 WBC (Bld) 3.1 % Normal 0.9-7.0 [facility] Comment on above: Performed By: #### C BC ####[facility] [address] [place], [place] [address]Dr. Raul Owens Erythrocyte distribution width (RBC) [Ratio] 13.5 % Normal 11.0-15.0 [facility] Comment on above: Performed By: #### C BC ####[facility] [address] [place], [place] [address]Dr. Raul Owens Hematocrit (Bld) [Volume fraction] 39.6 % Normal 36.0-48.0 [facility] Comment on above: Performed By: #### C BC ####[facility] [address] [place], [place] [id number]. Raul Owens Hemoglobin (Bld) [Mass/Vol] 13.0 g/dL Normal 12.0-16.0 [facility] Comment on above: Performed By: #### C BC ####[facility] [address] [place] [address]Dr. Raul Owens IG # 0.02 10e3/ul Normal 0.00-0.03 [facility] Comment on above: Performed By: #### C BC ####[facility] [address] [place] [address]Dr. Raul Owens IG % 0.3 % Normal 0.0-0.5 [facility] Comment on above: Performed By: #### C BC ####[facility] [address] [place], [place] [address]Dr. Raul Owens LYMPH # 2.1 103/ul Normal 1.2-3.8 [facility] Comment on above: Performed By: #### C BC ####[facility] [address] [place], [place] [address]Dr. Raul Owens Lymphocytes/100 WBC (Bld) 31.0 % Normal 20.5-60.0 [facility] Comment on above: Performed By: #### C BC ####[facility] [address] [place] [address]Dr. Raul Owens MANUAL DIFF REQ NO Normal [facility] Comment on above: Performed By: #### C BC ####[facility] [address] [place], [place] [address]Dr. Raul Owens MCH (RBC) [Entitic mass] 30.4 pg Normal 26.7-34.0 [facility] Comment on above: Performed By: #### C BC ####[facility] [address] [place], [place] [address]DrGiovanni Owens MCHC (RBC) [Mass/Vol] 32.8 g/dL Normal 29.9-35.2 [facility] Comment on above: Performed By: #### C BC ####[facility] [address] [place], [place] [address]Dr. Raul Owens MCV (RBC) [Entitic vol] 92.5 fL Normal 81.0-99.0 [facility] Comment on above: Performed By: #### C BC ####[facility] [address] [place], [place] [address]Dr. Raul Owens MONO # 0.5 103/ul Normal 0.3-0.8 [facility] Comment on above: Performed By: #### C BC ####[facility] [address] [place], [place] [address]Dr. Raul Roman Monocytes/100 WBC (Bld) 7.2 % Normal 1.7-12.0 [facility] Comment on above: Performed By: #### C BC ####[facility] [address] [place], [place] [address]Dr. Raul Owens NEUT # 3.9 103/ul Normal 1.4-6.5 [facility] Comment on above: Performed By: #### C BC ####[facility] [address] [place], [place] [address]Dr. Raul Roman Neutrophils/100 WBC (Bld) 57.8 % Normal 43.0-75.0 [facility] Comment on above: Performed By: #### C BC ####[facility] W[address] [place], [place] [address]Dr. Raul Roman Platelet mean volume (Bld) [Entitic vol] 10.3 fL Normal 9.5-13.5 [facility] Comment on above: Performed By: #### C BC ####[facility] [address] [place], [place] [address]Dr. Raul Roman PLT 263 103/ul Normal 150-450 [facility] Comment on above: Performed By: #### C BC ####[facility] [address] [place], [place] [address]Dr. Danielleroseanna Roman RBC 4.28 106/ul Normal 4.20-5.40 [facility] Comment on above: Performed By: #### C BC ####[facility] [address] [place], [place] [address]Dr. Raul Owens WBC 6.8 103/ul Normal 4.0-11.0 [facility] Comment on above: Performed By: #### C BC ####[facility] [address] [place] [address]Dr. Raul Owens FREE THYROXINE INDEX T7on FTI 3.28 Normal 1.30-4.50 [facility] Comment on above: Performed By: #### L IPID, TSH, CMP, T7 ####[facility] [address] [place] [id number]. Raul Owens T3U 36.0 % Normal 30.0-39.0 [facility] Comment on above: Performed By: #### L IPID, TSH, CMP, T7 ####[facility] [address] [place] [address]Dr. Raul Owens T4 [Mass/Vol] 9.10 ug/dL Normal 4.80-13.90 [facility] Comment on above: Performed By: #### L IPID, TSH, CMP, T7 ####[facility] [address] [place] [address]Dr. Raul Owens GLYCOHEMOGLOBIN A1Con 2021 ADA RECOMMENDATION SEE BELOW Normal [facility] Comment on above: Result Comment: ADA RECOMMENDED LIMIT 4.0 - 6.0 ADA THERAPEUTIC TARGET < 7.0 ACTION SUGGESTED > 7.0 Performed By: #### A 1C #### [facility] [address] [address] [address] Raul Owens Glucose [Mass/Vol] 114 mg/dL Normal [facility] Comment on above: Performed By: #### A 1C #### [facility] [address] [address] [address] Raul Owens HbA1c (Bld) [Mass fraction] 5.6 % Normal 4.5-6.2 [facility] Comment on above: Performed By: #### A 1C #### [facility] [address] [address] [address] Raul Owens IRONon 05-27-2022 Iron [Mass/Vol] 84.0 ug/dL Normal 50.0-170.0 [facility] Comment on above: Performed By: #### I KANNAN, VITAD ####[facility] [address] [place] [id number]. Danielleroseanna Roman LIPID PROFILEon 05-27-2022 CHOL-HDL RATIO NORM SEE BELOW Normal [facility] Comment on above: Result Comment: 3.3 - 4.4 LOW RISK 4.4 - 7.1 AVERAGE RISK 7.1 - 11.0 MODERATE RISK >11.0 HIGH RISK Performed By: #### L IPID, TSH, CMP, T7 ####[facility] [address] [place], [place] [address]Ry. Danielleroseanna Roman Cholesterol [Mass/Vol] 151 mg/dL Normal <=200 [facility] Comment on above: Performed By: #### L IPID, TSH, CMP, T7 ####[facility] [address] [place] [id number]. Raul Owens Cholesterol in HDL [Mass/Vol] 55 mg/dL Normal 40-60 [facility] Comment on above: Performed By: #### L IPID, TSH, CMP, T7 ####[facility] [address] [place] [id number]. Raul Owens Cholesterol in LDL [Mass/Vol] 79.4 mg/dL Normal [facility] Comment on above: Performed By: #### L IPID, TSH, CMP, T7 ####[facility] [address] [place] [id number]. Raul Owens Cholesterol.total/Cho lesterol in HDL [Mass ratio] 2.7 {ratio} Normal [facility] Comment on above: Performed By: #### L IPID, TSH, CMP, T7 ####[facility] [address] [place] [id number]. Raul Owens HDL NORMAL > or = 60 mg/dl - LO W CARDIOVASCULAR RISK <40 mg/dl - HIGH CARDIOVASCULAR RISK Normal [facility] Comment on above: Performed By: #### L IPID, TSH, CMP, T7 ####[facility] [address] [place] [id number] Owens LDL CALC NORMAL SEE BELOW Normal [facility] Comment on above: Result Comment: <100 mg/dl OPTIMAL 100 - 129 mg/dl NEAR OR ABOVE OPTIMAL 130 - 159 mg/dl BORDERLINE HIGH 160 - 189 mg/dl HIGH >190 mg/dl VERY HIGH Performed By: #### L IPID, TSH, CMP, T7 ####[facility] [address] [place], [place] [address]YpDr. Raul Owens Triglyceride [Mass/Vol] 83 mg/dL Normal <=150 [facility] Comment on above: Performed By: #### L IPID, TSH, CMP, T7 ####[facility] [address] [place], [place] [address]YtDr. Raul Owens VLDL CALC 16.6 mg/dL Normal [facility] Comment on above: Performed By: #### L IPID, TSH, CMP, T7 ####[facility] [address] [place], [place] [address]XgDr. Raul Owens PROF 14(COMP METB)on 022 Albumin [Mass/Vol] 3.6 g/dL Normal 3.4-5.0 [facility] Comment on above: Performed By: #### L IPID, TSH, CMP, T7 #### [facility] [address] [address] [address] Raul Owens Albumin/Globulin [Mass ratio] 1.1 {ratio} Normal [facility] Comment on above: Performed By: #### L IPID, TSH, CMP, T7 #### [facility] [address] [address] [address] Raul Owens ALP [Catalytic activity/Vol] 61 U/L Normal 46-116 [facility] Comment on above: Performed By: #### L IPID, TSH, CMP, T7 #### [facility] [address] [address] [address] Raul Owens ALT [Catalytic activity/Vol] 11 U/L Critically low 14-59 [facility] Comment on above: Performed By: #### L IPID, TSH, CMP, T7 #### [facility] [address] [address] [address] Raul Owens Anion gap [Moles/Vol] 10.0 mmol/L Normal Th e [facility] Comment on above: Performed By: #### L IPID, TSH, CMP, T7 #### [facility] [address] [address] [address] Raul Owens AST [Catalytic activity/Vol] 15 U/L Normal 15-37 [facility] Comment on above: Performed By: #### L IPID, TSH, CMP, T7 #### [facility] [address] [address] [address] Raul Owens Bilirubin [Mass/Vol] 0.3 mg/dL Normal 0.2-1.0 [facility] Comment on above: Performed By: #### L IPID, TSH, CMP, T7 #### [facility] [address] [address] [address] Raul Owens Calcium [Mass/Vol] 8.6 mg/dL Normal 8.5-10.1 [facility] Comment on above: Performed By: #### L IPID, TSH, CMP, T7 #### [facility] [address] [address] [address] Raul Owens Chloride [Moles/Vol] 104 mmol/L Normal 98-107 [facility] Comment on above: Performed By: #### L IPID, TSH, CMP, T7 #### [facility] [address] [place] [address] Dr. Raul Owens CO2 [Moles/Vol] 28.5 mmol/L Normal 21.0-32.0 [facility] Comment on above: Performed By: #### L IPID, TSH, CMP, T7 #### [facility] [address] [address] [address] Raul Owens Creatinine [Mass/Vol] 0.74 mg/dL Normal 0.55-1.02 [facility] Comment on above: Performed By: #### L IPID, TSH, CMP, T7 #### [facility] [address] [address] [address] Raul Owens EGFR-AF TURKMEN >60 Normal >=60 [facility] Comment on above: Performed By: #### L IPID, TSH, CMP, T7 #### [facility] [address] [address] [address] Raul Owens EGFR-NON AF TURKMEN >60 Normal >=60 [facility] Comment on above: Performed By: #### L IPID, TSH, CMP, T7 #### [facility] [address] [address] [address] Raul Owens Globulin (S) [Mass/Vol] 3.3 g/dL Normal [facility] Comment on above: Performed By: #### L IPID, TSH, CMP, T7 #### [facility] [address] [address] [address] Raul Owens Glucose [Mass/Vol] 99 mg/dL Normal 74-106 [facility] Comment on above: Performed By: #### L IPID, TSH, CMP, T7 #### [facility] [address] [address] [address] Raul Owens Potassium [Moles/Vol] 4.5 mmol/L Normal 3.5-5.1 [facility] Comment on above: Performed By: #### L IPID, TSH, CMP, T7 #### [facility] [address] [address] [address] Raul Owens Protein [Mass/Vol] 6.9 g/dL Normal 6.4-8.2 [facility] Comment on above: Performed By: #### L IPID, TSH, CMP, T7 #### [facility] [address] [address] [address] Raul Owens Sodium [Moles/Vol] 138 mmol/L Normal 136-145 [facility] Comment on above: Performed By: #### L IPID, TSH, CMP, T7 #### [facility] [address] [place] [address] Dr. Raul Owens Urea nitrogen [Mass/Vol] 11.0 mg/dL Normal 7.0-18.0 [facility] Comment on above: Performed By: #### L IPID, TSH, CMP, T7 #### [facility] [address] [address] [address] Raul Owens Urea nitrogen/Creatinine [Mass ratio] 14.9 mg/mg Normal [facility] Comment on above: Performed By: #### L IPID, TSH, CMP, T7 #### [facility] [address] [address] [address] Raul Owens TSHon 05-27-2022 TSH 0.107 uIU/mL Critically low 0.358-3.740 [facility] Comment on above: Performed By: #### L IPID, TSH, CMP, T7 #### [facility] [address] [address] [address] Raul Owens VITAMIN D 25 OHon 05-27-2022 VIT D 25-OH 21.7 ng/mL Normal [facility] Comment on above: Performed By: #### I KANNAN VITAD ####[facility] [address] [place], [place] [address]DrGiovanni Owens VIT D RANGES SEE BELOW Normal [facility] Comment on above: Result Comment: <20 ng/mL Vit D deficient 20 - <30 ng/mL Vit D insufficient 30 - 100 ng/mL Vit D sufficient >100 ng/mL Potential Toxicity Performed By: #### I KANNAN VITAD ####[facility] [address] [place], [place] [address]DrGiovanni Owens OCC BLD IMMUNO SCREENon 10-04 OCCULT BLOOD Negative Normal NEGATIVE [facility] Comment on above: Performed By: #### O BSCRN ####[facility] [address] [place] [address]DrGiovanni Owens CBC AUTO DIFFon 10-14-2021 BASO # 0.0 103/ul Normal 0.0-0.1 [facility] Comment on above: Performed By: #### C BC ####[facility] [address] [place] [address]DrGiovanni Owens Basophils/100 WBC (Bld) 0.7 % Normal 0.2-2.0 [facility] Comment on above: Performed By: #### C BC ####[facility] [address] [place] [address]Dr. Raul Owens EO # 0.2 103/ul Normal 0.0-0.7 [facility] Comment on above: Performed By: #### C BC ####[facility] [address] [place], [place] [address]Dr. Raul Owens Eosinophils/100 WBC (Bld) 5.2 % Normal 0.9-7.0 [facility] Comment on above: Performed By: #### C BC ####[facility] [address] [place], [place] [address]Dr. Raul Owens Erythrocyte distribution width (RBC) [Ratio] 13.3 % Normal 11.0-15.0 [facility] Comment on above: Performed By: #### C BC ####[facility] [address] [place], [place] [address]Dr. Raul Owens Hematocrit (Bld) [Volume fraction] 40.3 % Normal 36.0-48.0 [facility] Comment on above: Performed By: #### C BC ####[facility] [address] [place], [place] [address]Dr. Raul Owens Hemoglobin (Bld) [Mass/Vol] 13.0 g/dL Normal 12.0-16.0 [facility] Comment on above: Performed By: #### C BC ####[facility] [address] [place], [place] [address]Dr. Raul Owens IG # 0.01 10e3/ul Normal 0.00-0.03 [facility] Comment on above: Performed By: #### C BC ####[facility] [address] [place], [place] [address]Dr. Raul Owens IG % 0.2 % Normal 0.0-0.5 [facility] Comment on above: Performed By: #### C BC ####[facility] [address] [place], [place] [address]Dr. Raul Owens LYMPH # 1.3 103/ul Normal 1.2-3.8 [facility] Comment on above: Performed By: #### C BC ####[facility] [address] [place] [id number]. Raul Roman Lymphocytes/100 WBC (Bld) 27.9 % Normal 20.5-60.0 [facility] Comment on above: Performed By: #### C BC ####[facility] [facility] [address] [place] [address]Dr. Danielleroseanna Owens MANUAL DIFF REQ NO Normal [facility] Comment on above: Performed By: #### C BC ####[facility] [address] [place] [id number]. Raul Roman MCH (RBC) [Entitic mass] 30.8 pg Normal 26.7-34.0 [facility] Comment on above: Performed By: #### C BC ####[facility] [address] [place], [place] [address]Dr. Raul Roman MCHC (RBC) [Mass/Vol] 32.3 g/dL Normal 29.9-35.2 [facility] Comment on above: Performed By: #### C BC ####[facility] [address] [place], [place] [address]Dr. Danielleroseanna Owens MCV (RBC) [Entitic vol] 95.5 fL Normal 81.0-99.0 [facility] Comment on above: Performed By: #### C BC ####[facility] [address] [place], [place] [address]Dr. Raul Owens MONO # 0.4 103/ul Normal 0.3-0.8 [facility] Comment on above: Performed By: #### C BC ####[facility] [address] [place], [place] [address]Dr. Danielleroseanna Owens Monocytes/100 WBC (Bld) 7.8 % Normal 1.7-12.0 [facility] Comment on above: Performed By: #### C BC ####[facility] [address] [place], [place] [address]Dr. Raul Owens NEUT # 2.7 103/ul Normal 1.4-6.5 [facility] Comment on above: Performed By: #### C BC ####[facility] [address] [place] [address]Dr. Raul Owens Neutrophils/100 WBC (Bld) 58.2 % Normal 43.0-75.0 [facility] Comment on above: Performed By: #### C BC ####[facility] [address] [place] [address]Dr. Raul Owens Platelet mean volume (Bld) [Entitic vol] 10.7 fL Normal 9.5-13.5 [facility] Comment on above: Performed By: #### C BC ####[facility] [address] [place] [address]Dr. Raul Owens PLT 250 103/ul Normal 150-450 [facility] Comment on above: Performed By: #### C BC ####[facility] [address] [place] [address]Dr. Raul Owens RBC 4.22 106/ul Normal 4.20-5.40 [facility] Comment on above: Performed By: #### C BC ####[facility] [address] [place], [place] [address]Dr. Raul Owens WBC 4.6 103/ul Normal 4.0-11.0 [facility] Comment on above: Performed By: #### C BC ####[facility] [address] [place] [address]DrGiovanni Owens FREE T3on 10-14-2021 FREE T3 2.28 pg/mlL Normal 2.18-3.98 [facility] Comment on above: Performed By: #### F T3, T4, CMP, TSH, LIPID #### [facility] [address] [address] [address] Raul Owens GLYCOHEMOGLOBIN A1Con 2021 ADA RECOMMENDATION SEE BELOW Normal [facility] Comment on above: Result Comment: ADA RECOMMENDED LIMIT 4.0 - 6.0 ADA THERAPEUTIC TARGET < 7.0 ACTION SUGGESTED > 7.0 Performed By: #### A 1C ####[facility] [address] [place] [address]Dr. Raul Owens Glucose [Mass/Vol] 114 mg/dL Normal [facility] Comment on above: Performed By: #### A 1C ####[facility] [address] [place], [place] [address]UsDr. Raul Owens HbA1c (Bld) [Mass fraction] 5.6 % Normal 4.5-6.2 [facility] Comment on above: Performed By: #### A 1C ####[facility] [address] [place], [place] [address]CeDr. Raul Owens LIPID PROFILEon 10-14-2021 CHOL-HDL RATIO NORM SEE BELOW Normal [facility] Comment on above: Result Comment: 3.3 - 4.4 LOW RISK 4.4 - 7.1 AVERAGE RISK 7.1 - 11.0 MODERATE RISK >11.0 HIGH RISK Performed By: #### F T3, T4, CMP, TSH, LIPID #### [facility] [address] [address] [address] Raul Owens Cholesterol [Mass/Vol] 159 mg/dL Normal <=200 [facility] Comment on above: Performed By: #### F T3, T4, CMP, TSH, LIPID #### [facility] [address] [address] [address] Raul Owens Cholesterol in HDL [Mass/Vol] 57 mg/dL Normal 40-60 [facility] Comment on above: Performed By: #### F T3, T4, CMP, TSH, LIPID #### [facility] [address] [address] [address] Raul Owens Cholesterol in LDL [Mass/Vol] 86.2 mg/dL Normal [facility] Comment on above: Performed By: #### F T3, T4, CMP, TSH, LIPID #### [facility] [address] [address] [address] Raul Owens Cholesterol.total/Cho lesterol in HDL [Mass ratio] 2.8 {ratio} Normal [facility] Comment on above: Performed By: #### F T3, T4, CMP, TSH, LIPID #### [facility] [address] [address] [address] Raul Owens HDL NORMAL > or = 60 mg/dl - LO W CARDIOVASCULAR RISK <40 mg/dl - HIGH CARDIOVASCULAR RISK Normal [facility] Comment on above: Performed By: #### F T3, T4, CMP, TSH, LIPID #### [facility] [address] [address] [address] Raul Owens LDL CALC NORMAL SEE BELOW Normal [facility] Comment on above: Result Comment: <100 mg/dl OPTIMAL 100 - 129 mg/dl NEAR OR ABOVE OPTIMAL 130 - 159 mg/dl BORDERLINE HIGH 160 - 189 mg/dl HIGH >190 mg/dl VERY HIGH Performed By: #### F T3, T4, CMP, TSH, LIPID #### [facility] [address] [address] [address] Raul Owens Triglyceride [Mass/Vol] 79 mg/dL Normal <=150 [facility] Comment on above: Performed By: #### F T3, T4, CMP, TSH, LIPID #### [facility] [address] [address] [address] Raul Owens VLDL CALC 15.8 mg/dL Normal [facility] Comment on above: Performed By: #### F T3, T4, CMP, TSH, LIPID #### [facility] [address] [address] [address] Raul Owens PROF 14(COMP METB)on 022 Albumin [Mass/Vol] 3.6 g/dL Normal 3.4-5.0 [facility] Comment on above: Performed By: #### F T3, T4, CMP, TSH, LIPID #### [facility] [address] [address] [address] Raul Owens Albumin/Globulin [Mass ratio] 1.1 {ratio} Normal [facility] Comment on above: Performed By: #### F T3, T4, CMP, TSH, LIPID #### [facility] [address] [address] [address] Raul Owens ALP [Catalytic activity/Vol] 48 U/L Normal 46-116 [facility] Comment on above: Performed By: #### F T3, T4, CMP, TSH, LIPID #### [facility] [address] [address] [address] Raul Owens ALT [Catalytic activity/Vol] 20 U/L Normal 14-59 [facility] Comment on above: Performed By: #### F T3, T4, CMP, TSH, LIPID #### [facility] [address] [address] [address] Raul Owens Anion gap [Moles/Vol] 10.0 mmol/L Normal Th e [facility] Comment on above: Performed By: #### F T3, T4, CMP, TSH, LIPID #### [facility] [address] [place] [address] Dr. Raul Owens AST [Catalytic activity/Vol] 13 U/L Critically low 15-37 [facility] Comment on above: Performed By: #### F T3, T4, CMP, TSH, LIPID #### [facility] [address] [place] [address] Dr. Raul Owens Bilirubin [Mass/Vol] 0.6 mg/dL Normal 0.2-1.0 [facility] Comment on above: Performed By: #### F T3, T4, CMP, TSH, LIPID #### [facility] [address] [place] [address] Dr. Raul Owens Calcium [Mass/Vol] 8.7 mg/dL Normal 8.5-10.1 [facility] Comment on above: Performed By: #### F T3, T4, CMP, TSH, LIPID #### [facility] [address] [place] [address] Dr. Raul Owens Chloride [Moles/Vol] 104 mmol/L Normal 98-107 [facility] Comment on above: Performed By: #### F T3, T4, CMP, TSH, LIPID #### [facility] [address] [place] [address] Dr. Raul Owens CO2 [Moles/Vol] 28.4 mmol/L Normal 21.0-32.0 [facility] Comment on above: Performed By: #### F T3, T4, CMP, TSH, LIPID #### [facility] [address] [place] [address] Dr. Raul Owens Creatinine [Mass/Vol] 0.71 mg/dL Normal 0.55-1.02 [facility] Comment on above: Performed By: #### F T3, T4, CMP, TSH, LIPID #### [facility] [address] [address] [address] Raul Owens EGFR-AF TURKMEN >60 Normal >=60 [facility] Comment on above: Performed By: #### F T3, T4, CMP, TSH, LIPID #### [facility] [address] [address] [address] Raul Owens EGFR-NON AF TURKMEN >60 Normal >=60 [facility] Comment on above: Performed By: #### F T3, T4, CMP, TSH, LIPID #### [facility] [address] [address] [address] Raul Owens Globulin (S) [Mass/Vol] 3.4 g/dL Normal [facility] Comment on above: Performed By: #### F T3, T4, CMP, TSH, LIPID #### [facility] [address] [address] [address] Raul Owens Glucose [Mass/Vol] 99 mg/dL Normal 74-106 [facility] Comment on above: Performed By: #### F T3, T4, CMP, TSH, LIPID #### [facility] [address] [address] [address] Raul Owens Potassium [Moles/Vol] 4.4 mmol/L Normal 3.5-5.1 [facility] Comment on above: Performed By: #### F T3, T4, CMP, TSH, LIPID #### [facility] [address] [address] [address] Raul Owens Protein [Mass/Vol] 7.0 g/dL Normal 6.4-8.2 [facility] Comment on above: Performed By: #### F T3, T4, CMP, TSH, LIPID #### [facility] [address] [address] [address] Raul Owens Sodium [Moles/Vol] 138 mmol/L Normal 136-145 [facility] Comment on above: Performed By: #### F T3, T4, CMP, TSH, LIPID #### [facility] [address] [address] [address] Raul Owens Urea nitrogen [Mass/Vol] 9.0 mg/dL Normal 7.0-18.0 [facility] Comment on above: Performed By: #### F T3, T4, CMP, TSH, LIPID #### [facility] [address] [address] [address] Raul Owens Urea nitrogen/Creatinine [Mass ratio] 12.7 mg/mg Normal [facility] Comment on above: Performed By: #### F T3, T4, CMP, TSH, LIPID #### [facility] [address] [address] [address] Raul Owens T4on 10-14-2021 T4 [Mass/Vol] 10.00 ug/dL Normal 4.80-13.90 [facility] Comment on above: Performed By: #### F T3, T4, CMP, TSH, LIPID #### [facility] [address] [place] [address] Dr. Raul Owens TSHon 10-14-2021 TSH 0.053 uIU/mL Critically low 0.358-3.740 [facility] Comment on above: Performed By: #### F T3, T4, CMP, TSH, LIPID #### [facility] [address] [place] [address] Dr. Raul Owens TSH RANGE SEE BELOW Normal [facility] Comment on above: Result Comment: <0.3 4 UIU/ml HYPERTHYROID 0.34-5.60 UIU/ml EUTHYROID >5.60 UIU/ml HYPOTHYROID Performed By: #### F T3, T4, CMP, TSH, LIPID #### [facility] [address] [place] [address] Dr. Raul Owens VITAMIN D 25 OHon 10-14-2021 VIT D 25-OH 21.2 ng/mL Normal [facility] Comment on above: Performed By: #### V ITAD #### [facility] [address] [place] [address] Dr. Raul Owens VIT D RANGES SEE BELOW Normal [facility] Comment on above: Result Comment: <20 ng/mL Vit D deficient 20 - <30 ng/mL Vit D insufficient 30 - 100 ng/mL Vit D sufficient >100 ng/mL Potential Toxicity Performed By: #### V ITAD #### [facility] [address] [address] [address] Raul Owens Ambulatory Clinical Summaryo n 05-19-2021 Ambulatory Clinical Summary {[id number]}CD:[id number] Normal [facility] General Surgery Office/Clini c Noteon 05-19-2021 General [...] Shea, LYNDON Only if needed [address] [place] [address]- Additional Instructions: Problem List/Past Medical History Ongoing [...] Cardiac arrhythmia: Father. Crohn's disease: Father. Normal [facility] Comment on above: Result Comment: Elec tronically Signed By: AMAIRANI CHRIS, Kei Shea\.br\Date and Time Signed: 05/19/21 16:24 EST Pathology Noteon 05-13-2021 Pathology Note [id number] 2 [id number]:127 Normal [facility] General Surgery Office/Clini c Noteon 05-10-2021 General [...] Cardiac arrhythmia: Father. Crohn's disease: Father. Normal [facility] Comment on above: Result Comment: Elec tronically Signed By: AMAIRANI CHRIS, Kei Shea\.br\Date and Time Signed: 05/10/21 19:42 EST Ambulatory Clinical Summaryo n 05-08-2021 Ambulatory Clinical Summary {[id number]}CD:[id number] Normal [facility] May 05, 2021 Georgiana Cam, [facility] [place] [address] Re: PATRICIA KNUTSON Date of : 1970 Thank you for your referral of Patricia Knutson who was seen on consultation on 04/29/2021 for lipoma /cyst right posterior arm. An excisional biopsy is planned. I have enclosed my consultation notes for your review. I will be happy to follow Patricia. Sincerely, Kei Espinoza MD General Surgery [facility] Ambulatory Clinical Summaryo n 04-29-2021 Ambulatory Clinical Summary {[id number]}CD:[id number] [facility] Ambulatory Clinical Summary {[id number]}CD:[id number] [facility] Physician Referralon 021 Physician Referral [id number] 1 [id number] .[id number]:127 [facility] Encounters Encounter Date Encounter Type Care Provider Facility Start: 12-27-2023 End: 12-27-2023 ambulatory PHILL A VISCI Not Available Start: 11-18-2023 End: 11-18-2023 ambulatory PHILL A VISCI Not Available Start: 11-16-2022 End: 11-16-2022 ambulatory Georgiana Cam Facility:[facility] Start: 09-13-2022 End: 09-14-[address] GEORGIANA CAM . Facility:[facility] Start: 06-03-2022 Encounter for genera l adult medical examination without abnormal findings DR GEORGIANA CAM . [facility] Start: 05-27-2022 End: 05-28-[address] GEORGIANA CAM . Facility: Start: 05-27-2022 End: 05-28-2022 Encounter for general adult medical examination without abnormal findings DR GEORGIANA CAM . Facility:[facility] Start: 10-15-2021 End: 10-15-[address] GEORGIANA CAM . Facility:[facility] Start: 10-14-2021 End: 10-15-[address] GEORGIANA CAM . Facility: Payers Date Payer Category Payer Self-pay 1970 Unknown [id number] 2.16.84 [id number] 1970 Unknown [id number] 2.16.84 [id number] 1970 Unknown [id number] 2.16.84 [id number] 1970 Unknown [id number] 2.16.84 [id number] 1970 Unknown [id number] 2.16.84 [id number] 1970 Unknown [id number] 2.16.84 [id number] 1959 Unknown [id number] Unknown [id number] 2.16.8 [id number] Clinical Note 04-29-2021 Note Date & Type [...] Mother. Cardiac arrhythmia: Father. Crohn's disease: Father. [facility] Comment on above: Result Comment: Elec tronically [...] including vitamins, herbs, eye drops, creams, and mgwb-fxs-hihyfhv medicines. ? Any problems you or family [...] 08/05/2016 Document Revised: 01/13/2017 Document Reviewed: 08/05/2016 [employer] Patient Education ? 2020 [employer]. [facility] Summary Purpose Family History No Family History Records FoundNo Family History Records FoundNo Family History Records FoundNo Family History Records Found Advance Directives No Advanced Directives Records FoundNo Advanced Directives Records FoundNo Advanced Directives Records FoundNo Advanced Directives Records Found Additional Source Comments INFORMATION SOURCE (unrecogn ized section and content) DATE CREATED AUTHOR 08/22/2021 [place] [facility] DATE CREATED AUTHOR AUTHOR'S ORGANIZ ATION 09/19/2022 [facility] DATE CREATED AUTHOR AUTHOR'S ORGANIZ ATION 12/09/2022 [facility] DATE CREATED AUTHOR AUTHOR'S ORGANIZ ATION 12/31/2023 [facility] dical Specialists [facility] FOR RECORDS PERTAINING TO PATIENTS WHO ARE [...] BE BASED ON THE PRIMARY CLINICAL RECORDS. [employer] provides no warranty or guarantee of the accuracy or completeness of information in this document.
== END 2024-08-29 07:41 | disposition home or self-care (01) ==
LOC: NM 07:40
PROVIDERS: Family Provider Obstetrics & Gynecology; PCP Family Medicine; Visit Provider Family Medicine
DX: R07.9 Chest pain, unspecified (principal)
CPT/HCPCS: 78452; 93017; A9500

== ENCOUNTER 2024-11-14 13:08 | Outpatient (OUT) | payer OTHER, SELFPAY ==
--- OUTSIDE RECORDS SUMMARY | 2023-10-25 06:00 | XMS_ITS ---
Author Organization BILLING FACILITY [facility] Address [address] [place] [address] Care Team Providers Care Disease Management Nurse Name Role Phone Rose Guaman Primary Care Provider Encounters Encounter Location Date Provider Diagnosis [address] [place] [address] 10/25/2023 Rose Guaman PLAN OF TREATMENT No Information
--- OUTSIDE RECORDS SUMMARY | 2023-10-27 13:00 | XMS_ITS ---
Author Organization [facility]ILLING FACILITY [facility] Address [address] [place] [address] Care Team Providers Care Hop Separator Name Role Phone Rose Guaman Primary Care Provider [phone] Mitchel Alfredo Unavailable [phone] ALLERGIES No Known Allergies REASON FOR VISIT van MEDICATIONS Medication SIG (Take, Route, Frequency, Duration) Notes Start Date End Date Status Levothyroxine Sodium 25 MCG 1 tablet in the morning on an empty stomach Orally Once a day Active SOCIAL HISTORY Tobacco Use: Social History Observation Description Date Details (start date - stop date) Never Smoker NA - NA Sex Assigned At : Social History Observation Description Sex Assigned At Unknown Tobacco Use/Smoking Question Answer Notes Are you a nonuser Section Notes: EtOH 2 drinks/week. Home c h usband and 3 kids in college - 1 in HS. No illicit drugs VITAL SIGNS Heart Rate 75 /min 10/27/2023 Oximetry 98 % 10/27/2023 Weight 141.8 lbs 10/27/2023 Weight-kg 64.32 kg 10/27/2023 Encounters Encounter Location Date Provider Diagnosis [address] [place] [address] [place] [address] 10/27/2023 Mitchel Santos Encounter for physic al examination related to employment Z02.89 ASSESSMENTS Encounter Date Diagnosis Assessment Notes Treatment Notes Treatment Clinical Notes Section Notes 10/27/2023 Encounter for physical examination related to employment (ICD-10 - Z02.89) [employer] distribution driver exam unconditionall y. Paperwork completed PLAN OF TREATMENT Treatment Notes Assessment Notes Encounter for physical exami nation related to employment Passes distribution driver exam unconditionally. Paperwork completed Next Appt Details Follow Up: prn, Reason: Progress Notes * Nette CASTRO:1970 ( 53 yo F)Acc No.[id number]:10/27/2023 Occupational Health Patient: Catalina CASTRO Provider: Mitchel Santos MD :1970 Age:53 Y Sex:Female Date:10/27/2023 Address:[address] [place], [place] [address] Pcp:Rose Guamna Subjective: * Chief Complaints: * Van * HPI: *: Feels well and denies any neuro, M/s issues. Sleep is good. No daytime somnolence. States mood and anxiety levels are good. * Medical History: * Laundry Room Attendant History: Last mammogram date fall 2022. Abnormal pap smear 2022. Date of Last Period 04/2023. * OB History: Total pregnancies 4. Total living children 4. # 1: normal spontaneous vaginal delivery (). # 2: normal spontaneous vaginal delivery (). # 3 normal spontaneous vaginal delivery (). # 4: normal spontaneous vaginal delivery (). * Surgical History: septoplasty 2018 * Hospitalization/Major Diagno stic Procedure: Denies Past Hospitalization * Family History: Father: alive 87 yrs. Mother: alive 83 yrs, Parkinsons, diagnosed with Coronary atherosclerosis, CVA (cerebral infarction). Sister 1: alive. Brother 1: , lung cancer - smoker. other siblings healthy. * Social History: Tobacco Use: Tobacco Use/Smoking Are you a nonuser EtOH 2 drinks/week. Home c and 3 kids in college - 1 in . No illicit drugs. * Medications: TakingLevothyroxine Sodium 25 MCG Tablet 1 tablet in the morning on an empty stomach Orally Once a day Medication List reviewed and reconciled with the patientTaking Levothyroxine Sodium 25 MCG Tablet 1 tablet in the morning on an empty stomach Orally Once a day Medication List reviewed and reconciled with the patient * Allergies: N.K.A.no[Allergies Verified] Objective: * Vitals: HR:75, Oxygen sat:98%, Wt:141.8lbs, Wt Ch.8, Wt-k.32 kg, Vision: Left eye:20/20, Right eye:20/20, Both eyes:20/20, Comments:contacts bifocal, Hearing: Right Ear: 500:p, 1000:p, 2000:p, Decibels: 10, Left Ear: 500:p, 1000:p, 2000:p, Decibels: 10. * Examination: General Examination *: GENERAL APPEARANCE: alert and oriented, no acute distress, pleasant, well nourished. HEAD: atraumatic, normocephalic. EYES: extraocular movements intact, conjunctiva clear, sclera non-icteric. EARS: auditory canal clear, light reflex present, tympanic membrane intact. NOSE: nares patent, no lesions . ORAL CAVITY: no lesions, mucosa moist, normal dentition. THROAT: no erythema, no exudate, pharynx normal, tonsils normal, uvula midline . NECK/THYROID: neck supple, no thyromegaly. HEART: S1/S2 normal, regular rate and rhythm, no murmurs, no rubs, no gallops. LUNGS: clear to auscultation, good air movement, no respiratory distress. ABDOMEN: soft, non-tender, normal bowel sounds, non-distended. EXTREMITIES: no edema, capillary refill normal. PERIPHERAL PULSES: 2+ throughout. NEUROLOGIC: alert, cooperative, moving all extremities spontaneously, non-focal. MUSCULOSKELETAL: no swelling or deformity. Passes sports PE exam. Therapeutic Interventions: Assessment: * Assessment: 1. Encounter for physical examination related to employment - Z02.89 (Primary) Plan: * Treatment: * Procedure Codes: * Follow Up: prn * Billing Information: * Visit Code: [id number] Preventive Care New Pt. Age 40-64. * Procedure Codes: * Sign off status: Completed true * Provider: Mitchel Santos MD Date: 10/27/2023 History and Physical Notes * HPI (History of Present Illness) Category Sub-Category Detail Notes Category Not es * Feels well and denies any neuro, M/s issues. Sleep is good. No daytime somnolence. States mood and anxiety levels are good. Examination Category Sub-Category Detail Notes Category Not es General Examination * GENERAL APPEARANCE: alert and oriented, no acute distress, pleasant, well nourished HEAD: atraumatic, normocep halic EYES: extraocular movement s intact, conjunctiva clear, sclera non-icteric EARS: auditory canal clear , light reflex present, tympanic membrane intact NOSE: nares patent, no les ions ORAL CAVITY: no lesions, mucosa m oist, normal dentition THROAT: no erythema, no exud ate, pharynx normal, tonsils normal, uvula midline NECK/THYROID: neck supple, no thyr omegaly HEART: S1/S2 normal, regula r rate and rhythm, no murmurs, no rubs, no gallops LUNGS: clear to auscultatio n, good air movement, no respiratory distress ABDOMEN: soft, non-tender, no rmal bowel sounds, non-distended MUSCULOSKELETAL: no swelling or defor mity. Passes sports PE exam EXTREMITIES: no edema, capillary refill normal PERIPHERAL PULSES: 2+ throughout NEUROLOGIC: alert, cooperative, moving all extremities spontaneously, non-focal
--- OUTSIDE RECORDS SUMMARY | 2024-08-21 04:15 | XMS_ITS ---
[facility] [place] Address [address] [place] [address] Care Team Providers Care Civil Preparedness Officer Name Role Phone Job Cam Primary Care Provider Allergies Allergen (clinical drug ingredient) Drug/Non Drug Allergy documented on EMR Reaction Allergy Type Onset Date Status moxifloxacin Avelox stomach upset Drug Allergy Active naproxen Naprosyn stomach upset Drug Allergy Act beto REASON FOR VISIT Wellness, discuss tests for heart, anytime drink coffee or alcohol heart beats very fast Medications Medication SIG (Take, Route, Frequency, Duration) Notes Start Date End Date Status RA Vitamin D-3 50 MCG (1999) take 1 capsule by mouth once daily Oral Once a day for 30 days Active Levothyroxine Sodium 100 MCG take 1 tabl et by mouth once daily for 30 Active Diclofenac Sodium 75 MG 1 tablet as need ed Orally Twice a day for 30 days 01/30/2024 Active Social History Tobacco Use: Social History Observation Description Date Details (start date - stop date) Never Smoker NA - NA Tobacco Use/Smoking Question Answer Notes Patient is a nonsmoker AUDIT-C (Standard) Question Answer Notes Did you have a drink contain ing alcohol in the past year? Yes How often did you have six o r more drinks on one occasion in the past year? Never (0 point) How many drinks did you have on a typical day when you were drinking in the past year? 1 or 2 drinks (0 point) How often did you have a dri nk containing alcohol in the past year? 2 to 3 times a week (3 points) Points 3 Interpretation Positive Problems Problem Type SNOMED Code ICD Code Onset Dates Problem Status W/U Status Risk Notes Problem Well adult (524331005) Well adult (Z00.00) Active confirmed Problem Chest pain (R07.9) Active confirmed Vital Signs Weight 136.8 lbs 08/21/2024 Height 65 in 08/21/2024 Blood pressure systolic 112 mm Hg 08/22/19 25 Blood pressure diastolic 80 mm Hg 025 BMI 22.76 kg/m2 08/21/2024 Encounters Encounter Location Date Provider Diagnosis [facility] [address] [place] [address] 08/21/2024 Job Cam Well adult Z00.00 an d Chest pain R07.9 Assessments Encounter Date Diagnosis (ICD Code) Assessment Notes Treatment Notes Treatment Clinical Notes Section Notes 08/21/2024 Well adult (ICD-10 - Z00.00) 08/21/2024 Chest pain (ICD-10 - R07.9) Plan Of Treatment Pending Test Test Name Order Date HEMOGLOBIN A1C (GLYCO) 08/21/2024 LIPID PANEL (CHOL/TRIG/HDL/LDL) 08/22/19 25 Treadmill Stress Test with Nuclear Imagi ng 08/21/2024 THYROID PANEL (T4/TSH/FREE T3) 5 CMP (COMP MET LEE) w/eGFR CKD-EPI 2024 CBC WITH DIFF 08/21/2024 Progress Notes * Catalina KNUTSON MDOB:1970 (54 yo F)Acc No.[id number]:08/21/2024 Progress Note Patient: Jeffrey Catalina SCHERER Provider: Puma Cam (TTC)MD :1970 A ge:54 Y S ex:Female Date:08/21/2024 Address:[address] [place] [address] [id number] Check In:08:16 AM ESTCheck O ut:08:57 AM EST Subjective: * Chief Complaints: * W ellnessDiscuss tests for heart, anytime drink coffee or alcohol heart beats very fast * HPI: G eneral: Heart races at times - with chestg pressru at those times -? + FH CAD. D epression Screening: PHQ-2 (2015 Edition) L ittle interest or pleasure in doing things??Not at all F eeling down, depressed, or hopeless? N ot at all T otal Score 0 * ROS: E ENT: hearing changes d enies. v isual changes d enies.?non-healing mouth sores d enies. s wollen glands or neck lumps d enies. h oarseness d enies. s ore throat d enies. d ifficulty swallowing d enies. n ose bleeds d enies. n nini congestion d enies. e ar ache d enies. e ar discharge?denies. r inging in ears d enies. l ight sensitivity d enies. e ye pain d enies. b lurring d enies. e ye irritation d enies. d ouble vision d enies.?vision loss d enies. G eneral/Constitutional: Sweats: D enies. F atigue d enies. S leep problems d enies. A norexia d enies. M alaise d enies. W eight loss d enies.?Fatigue or Weakness d enies. F ever or Chills d enies. C ardiovascular: Shortness of Breath w/lying flat d enies. L ightheadedness/dizziness d enies. C hest tightness/ heavy pressure d enies. S welling of legs, ankles, or feet d enies. W aking up with shortness of breath d enies. C hest pain denies. P alpitations d enies. W eight gain d enies. R espiratory: Chronic or frequent cough d enies. C oughing up blood?denies. D ifficulty breathing d enies. P roductive cough d enies. S noring?denies. S hortness of breath that awakens from sleep (PND) d enies. C hest pain d enies. S putum production d enies. W heezing d enies. M usculoskeletal: Joint pain d enies. J oint Fluid d enies. B ack pain d enies. K nee pain d enies. N marisela pain d enies. J oint Stiffness d enies. M uscle cramps d enies. W eakness of muscles d enies. A rthritis d enies. M uscle aches d enies. P ain in shoulder(s) d enies. S wollen joints d enies. * Active Problem List J01.90 Acute sinus infectio n Modified On:04/19/2023/U Status:confirmed E03.9 Hypothyroidism, unsp ecified Modified On:06/13/2023/U Status:confirmed M72.2 Plantar fascial fibr omatosis Modified On:03/07/2024/U Status:confirmed Z00.00 Well adult Modified On:08/21/2024/U Status:confirmed R07.9 Chest pain Modified On:08/21/2024/U Status:confirmed * Medical History: * Surgical History: D enies Past Surgical History * Hospitalization/Major Diagno stic Procedure: D enies Past Hospitalization * Family History: F ather: alive. M other: alive. B rother(s): alive, diagnosed with Atrial fibrillation, unspecified type. S ister(s): alive. S on(s): alive. 2 brother(s) , 3 sister(s) - healthy. 4 son(s) - healthy. . * Social History: T obacco Use: T obacco Use/Smoking P atient is a n onsmoker D rug/Alcohol: A JULIET-C (Standard) D id you have a drink containing alcohol in the past year? Y es H ow often did you have six or more drinks on one occasion in the past year? N ever (0 point) H ow many drinks did you have on a typical day when you were drinking in the past year? 1 or 2 drinks (0 point) H ow often did you have a drink containing alcohol in the past year? 2 to 3 times a week (3 points) P oints 3 I nterpretation P ositive * Medications: T akingDiclofenac Sodium 75 MG Tablet Delayed Release 1 tablet as needed Orally Twice a day Levothyroxine Sodium 100 MCG Tablet take 1 tablet by mouth once daily RA Vitamin D-3(Cholecalciferol) 50 MCG (1999 UT) Capsule take 1 capsule by mouth once daily Oral Once a day Taking Diclofenac Sodium 75 MG Tablet Delayed Release 1 tablet as needed Orally Twice a day Taking Levothyroxine Sodium 100 MCG Tablet take 1 tablet by mouth once daily Taking RA Vitamin D-3(Cholecalciferol) 50 MCG (1999) Capsule take 1 capsule by mouth once daily Oral Once a day DiscontinuedpredniSONE 10 MG Tablet 3 tablets once a day for 3 days, 2 tablets once a day for 3 days, 1 tablet once a day for 3 days Orally Triamcinolone Acetonide 0.1 % Cream 1 application Externally Two times a Week Medication List reviewed and reconciled with the patientDiscontinued predniSONE 10 MG Tablet 3 tablets once a day for 3 days, 2 tablets once a day for 3 days, 1 tablet once a day for 3 days Orally Discontinued Triamcinolone Acetonide 0.1 % Cream 1 application Externally Two times a Week Medication List reviewed and reconciled with the patient * Allergies: N aprosyn: stomach upset - Allergy - Criticality HighAvelox: stomach upset - Allergy - Criticality Highno[Allergies Verified] Objective: * Vitals: W t:136.8lbs, Ht: 65 in, BP:112/80mm Hg, BMI:22.76Index, Ht-cm: 165.1 cm, Wt-k.05 kg. * Examination: P hysical Exam: GENERAL: w ell developed, well nourished, in no acute distress. HEAD: n ormocephalic/atraumatic. EYES: p upils equal, round and reactive to light, conjunctivae and sclerae normal. EARS: n o deformity or lesion of external ear, canals and TM appear normal bilaterally, TM's intact, not inflamed with normal light reflex, hearing grossly normal to conversational speech. NOSE: n o deformity, discharge, inflammation, or lesions.? MOUTH: m ucous membranes moist, normal oropharynx and posterior pharynx without lesions or exudates, tongue normal, dentition normal. NECK: n marisela supple, no masses or palpable cervical nodes, trachea midline, thyroid without nodules, masses, tenderness, or enlargement. CHEST: n o chest wall deformity, no chest wall tenderness.? LUNGS: n ormal respiratory effort and clear to auscultation, no wheezes, rales, or rhonchi, good air exchange. CARDIO: r egular rate and rhythm, normal S1 and S2, nor murmur, rub, or gallop. PULSES: n ormal capillary refill. ABDOMEN: s oft, non-distended, non-tender, no masses. MUSCULOSKELETAL: n o deformity or scoliosis noted, normal range of motion, joints normal, no erythema, edema, effusion, or ecchymosis. EXTREMITY: n o clubbing, cyanosis, edema, or deformity with normal ROM in both upper and lower bilateral extremities. NEUROLOGIC: g rossly normal. SKIN: n o rashes, ulcerations, or suspicious lesions. LYMPH NODES: n o cervical adenopathy, nodes normal. MENTAL STATUS: a lert and oriented x3, normal mood and affect. Assessment: * Assessment: 1. W ell adult - Z00.00 (Primary) 2 . C hest pain - R07.9 Plan: * Treatment: 2. C hest pain I maging: Treadmill Stress Test with Nuclear Imaging * Procedure Codes: * * Sign off status: Completed Visit Status: C HK (Check Out) true * Provider: Puma Cam (TTC)MD Date: 0 08/21/2024 Generated for Printi ng/Shannan/eTransmitting on: 0 11/14/2024 01:17 PM EDT History and Physical Notes * HPI (History of Present Illness) Category Sub-Category Detail Notes Category Not es General Heart races at times - with chestg pressru at those times - + FH CAD Depression Screening PHQ-2 (2015 Edition) Little interest or pleasure in doing things?: Not at all Feeling down, depressed, or hopeless?: N ot at all Total Score: 0 Examination Category Sub-Category Detail Notes Category Not es Physical Exam GENERAL: well developed, well nourished, in no acute distress HEAD: normocephalic/atraum atic EYES: pupils equal, round and reactive to light, conjunctivae and sclerae normal EARS: no deformity or lesi on of external ear, canals and TM appear normal bilaterally, TM's intact, not inflamed with normal light reflex, hearing grossly normal to conversational speech NOSE: no deformity, discha rge, inflammation, or lesions MOUTH: mucous membranes [facility], normal oropharynx and posterior pharynx without lesions or exudates, tongue normal, dentition normal NECK: neck supple, no mass es or palpable cervical nodes, trachea midline, thyroid without nodules, masses, tenderness, or enlargement CHEST: no chest wall deform ity, no chest wall tenderness LUNGS: normal respiratory e ffort and clear to auscultation, no wheezes, rales, or rhonchi, good air exchange CARDIO: regular rate and rhy thm, normal S1 and S2, nor murmur, rub, or gallop PULSES: normal capillary ref ill ABDOMEN: soft, non-distended, non-tender, no masses RECTAL: MUSCULOSKELETAL: no deformity or scol iosis noted, normal range of motion, joints normal, no erythema, edema, effusion, or ecchymosis EXTREMITY: no clubbing, cyanosi s, edema, or deformity with normal ROM in both upper and lower bilateral extremities NEUROLOGIC: grossly normal SKIN: no rashes, ulceratio ns, or suspicious lesions LYMPH NODES: no cervical adenopat hy, nodes normal MENTAL STATUS: alert and oriented x 3, normal mood and affect
--- OUTSIDE RECORDS SUMMARY | 2024-08-21 16:30 | XMS_ITS ---
Author Organization [facility] in [place] Address [address] [place] [address] Care Team Providers Care Procurement Coordinator Name Role Phone Job Cam Primary Care Provider REASON FOR VISIT LAbs Medications Medication SIG (Take, Route, Frequency, Duration) Notes Start Date End Date Status Levothyroxine Sodium 88 MCG take 1 table t by mouth once daily Orally Once a day for 30 days Active Encounters Encounter Location Date Provider Diagnosis [facility] [address] [place] [address] 08/21/2024 Job Cam Other specified abnormal findings of blood chemistry R79.89 Assessments Encounter Date Diagnosis (ICD Code) Assessment Notes Treatment Notes Treatment Clinical Notes Section Notes 08/21/2024 Other specified abnormal findings of blood chemistry (ICD-10 - R79.89) Plan Of Treatment Medication Medication Name Sig Start Date Stop Date Notes Levothyroxine Sodium 88 MCG take 1 table t by mouth once daily Orally Once a day for 30 days Pending Test Test Name Order Date THYROID PANEL (T4/TSH/FREE T3) Progress Notes * Catalina KNUTSON MDOB:1970 (54 yo F)Acc No.[id number]:08/21/2024 Patient: Catalina CATALAN :1970 A ge:54 Y S ex:Female [address] [facility] [address] * Refills Refill Levothyroxine Sodium Capsule, 88 MCG, Orally, 30, take 1 tablet by mouth once daily, Once a day, 30 days, Refills=11 Subjective: * Chief Complaints: * L Abs * Medical History: * Surgical History: * Hospitalization/Major Diagno stic Procedure: * Medications: Objective: * Vitals: * Physical Examination: Assessment: * Assessment: 1. O ther specified abnormal findings of blood chemistry - R79.89 (Primary) Plan: * Treatment: 2. O thers Refill Levothyroxine Sodium Capsule, 88 MCG, take 1 tablet by mouth once daily, Orally, Once a day, 30 days, 30, Refills 11. * Procedure Codes: * true * Date: Generated for Dipak mariscal/Shannan/Carlos Eduardo on: 11/14/2024 01:13 PM EDT
--- OUTSIDE RECORDS SUMMARY | 2024-08-29 14:40 | XMS_ITS ---
Author Organization [facility] [place] Address [address] [place] [address] Care Team Providers Care Electrical Line Worker Name Role Phone Tutu Job Primary Care Provider [phone] REASON FOR VISIT Stress Test Encounters Encounter Location Date Provider Diagnosis [facility] [address] [place] [address] 08/29/2024 Job Cam Plan Of Treatment No Information Progress Notes * Catalina KNUTSON MDOB:1970 (54 yo F)Acc No.[id number]:08/29/2024 Patient: Catalina CATALAN :1970 A ge:54 Y S ex:Female Address:[address] [place] [address] * true * Date: Generated for Sunshinei davey/Faarturg/eTransmitting on: 0 11/14/2024 01:16 PM EDT
--- OUTSIDE RECORDS SUMMARY | 2024-11-14 13:15 | XMS_ITS | Patient Health Record ---
Author Organization BILLING FACILITY [facility] Address [address] [place] [address] Care Team Providers Care New Car Driver Name Role Phone Rose Guaman Primary Care Provider ALLERGIES No Known Allergies REASON FOR REFERRAL No Information MEDICATIONS Medication SIG (Take, Route, Frequency, Duration) [...] - 1 in HS. No illicit drugs PLAN OF TREATMENT No Information MEDICAL (GENERAL) HISTORY Medical History History ICD Code Hypothyroidism Surgical History Surgery Date(Month/Year) septoplasty 2018
--- OUTSIDE RECORDS SUMMARY | 2024-11-14 13:15 | XMS_ITS | Encounter Summary ---
Author Organization [facility] Address [address] [place] [address] Care Team Providers Care Dental Ceramist Helper Name Role Phone Sunil Cam MD Primary Care Provider [phone] Encounter Details Date Type Department Care Team (Late st Contact Info) Description 11/23/2022 Abstract [facility] [address] [facility] [address] [place] [address] Phill Gil, DO [address] [facility] [address] [place] [address] Social History Tobacco Use Types Packs/Day Years Used Date Smoking Tobacco: Never Smokeless Tobacco: Never Alcohol Use Standard Drinks/Week Comments Yes 0 (1 standard drink = 0.6 oz pur e alcohol) AUDIT-C Answer Date Recorded Q1: How often do you have a drink containing alc ohol? Monthly or less 10/27/2022 Q2: How many drinks containi ng alcohol do you have on a typical day when you are drinking? 1 or 2 10/27/2022 Q3: How often do you have si x or more drinks on one occasion? Never 10/27/2022 Comments No Sex and Gender Information Value Date Recorded Sex Assigned at Not on file Legal Sex Female 7:13 PM EDT Gender Identity Not on file Sexual Orientation Not on file COVID-19 Exposure Response Date Recorded In the last 10 days, have yo u been in contact with someone who was confirmed or suspected to have Coronavirus/COVID-19? No / Unsure 11/25/2022 6:30 PM EDT documented as of this encounter Plan of Treatment Upcoming Encounters Date Type Department Care Team (Late st Contact Info) Description 11/22/2024 10:15 AM EDT Office Visit [facility] [address] [place] [address] Phill Gil, DO [address] [place] [address] documented as of this encounter Visit Diagnoses Not on filedocumented in this encounter Care Teams Dental Ceramist Helper Relationship Specialty Start Date End Date Sunil Cam MD PCP - General Family Medicine 10/27/22 documented as of this encounter
--- OUTSIDE RECORDS SUMMARY | 2024-11-14 13:15 | XMS_ITS | Encounter Summary ---
Author Organization [facility] Address [address] [place] [address] Care Team Providers Care Service Captain Name Role Phone Sunil Cam MD Primary Care Provider [phone] Encounter Details Date Type Department Care Team (Late st Contact Info) Description 02/02/2023 Orders Only [facility] [address] [facility] [address] [place] [address] Phill Gil, DO [address] [facility] [address] [place] [address] Social History Tobacco Use Types Packs/Day Years Used Date Smoking Tobacco: Never Smokeless Tobacco: Never Alcohol Use Standard Drinks/Week Comments Yes 2 (1 standard drink = 0.6 oz pur [...] more drinks on one occasion? Never 10/27/2022 PHQ-2 Answer Date Recorded Patient Health Questionnaire-2 Score 0 12/16/2022 Comments No Sex and Gender Information Value Date Recorded Sex Assigned at Not on file Legal Sex Female 7:13 PM EDT Gender Identity Not on file Sexual Orientation Not on file COVID-19 Exposure Response Date Recorded In the last 10 days, have yo u been in contact with someone who was confirmed or suspected to have Coronavirus/COVID-19? No / Unsure 01/26/2023 12:52 PM EDT documented as of this encounter Plan of Treatment Upcoming Encounters Date Type Department Care Team (Late st Contact Info) Description 11/22/2024 10:15 AM EDT Office Visit [facility] [address] [place] [address] Phill Gil, DO [address] [place] [address] documented as of this encounter Procedures Procedure Name Priority Date/Time Associated Diagnosis Comments ULTRASOUND : TRANSVAGINAL Routine 2022 11:48 AM EDT documented in this encounter Results * ULTRASOUND : TRANSVAGINAL (10/14/2022 11:48 AM EDT) Anatomical Region Laterality Modality Radiographic Qiana ging us Phill Gil DO IMG XR PROCEDURES Final Resul t documented in this encounter Visit Diagnoses Not on filedocumented in this encounter Care Teams Service Captain Relationship Specialty Start Date End Date Sunil Cam MD PCP - General Family Medicine 10/27/22 documented as of this encounter
--- OUTSIDE RECORDS SUMMARY | 2024-11-14 13:15 | XMS_ITS | Clinical Summary ---
Author Organization [facility] Address [id number] [address] [place] [address] Care Team Providers Care Head Bookkeeper Name Role Phone No Pcp, No Pcp Primary Care Provider Unavailabl e Allergies No known active allergies Medications levothyroxine (SYNTHROID, LEVOTHROID) 100 MCG tablet Take 100 mcg by mouth daily. 04/23/2020 Active Active Problems No known active problems Family History Relation Name Status Comments Father Alive Mother Alive Social History Tobacco Use Types Packs/Day Years Used Date Smoking Tobacco: Never Smokeless Tobacco: Never Tobacco Cessation:Counseling Given: No Alcohol Use Standard Drinks/Week Comments Not Currently 1 (1 standard drink = 0.6 oz pur e alcohol) rarely PHQ-2 Answer Date Recorded Total Score 0 10/27/2022 Childcare Answer Date Recorded Childcare Unknown 11/15/2018 Employment Answer Date Recorded Employment Unknown 11/15/2018 Purpose - Life Answer Date Recorded Purpose and direction in life Unknown Comments Unknown Sex and Gender Information Value Date Recorded Sex Assigned at Not on file Legal Sex Female 11:51 AM EDT Gender Identity Not on file Sexual Orientation Not on file 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 Not on file Not on danisha e Last Filed Vital Signs Vital Sign Reading Time Taken Comments Blood Pressure 102/70 10/27/2022 3:23 PM EDT Pulse 97 10/27/2022 3:23 PM EDT Temperature 36.4 C (97.5 F) 10/27/2022 3:23 PM EDT Respiratory Rate 14 10/20/2021 3:40 PM EDT Oxygen Saturation 99% 10/27/2022 3:23 PM EDT Inhaled Oxygen Concentration - - Weight 60.3 kg (133 lb) 10/27/2022 3:23 PM EDT Height 165.1 cm (5' 5 ) 10/27/2022 3:23 PM EDT Body Mass Index 22.13 10/27/2022 3:23 PM EDT Plan of Treatment Health Maintenance Due Date Last Done Comments DTaP,Tdap and Td Vaccines (1 - Tdap) 1989 Pap Smear 1991 Zoster (Shingles) Vaccine (1 of 2) 2020 Adult BMI Screening 10/28/2023 10/27/2022 Depression Screening 10/28/2023 10/27/2022 Tobacco Screening 10/28/2023 COVID-19 Vaccine ( season) 2024, 09/12/2020 Influenza Vaccine 02/04/2025 Medical Devices Not on file Care Teams Head Bookkeeper Relationship Specialty Start Date End Date No Pcp, [place] [id number] PCP - General Family Medicine 05/19/20
--- OUTSIDE RECORDS SUMMARY | 2024-11-14 13:15 | XMS_ITS | Encounter Summary ---
Author Organization [facility] Address [address] [place] [address] Care Team Providers Care Dial Buffer Name Role Phone Sunil Cam MD Primary Care Provider [phone] Encounter Details Date Type Department Care Team (Late st Contact Info) Description 11/17/2022 Abstract [facility] [address] [facility] [address] [place] [address] Phill Gil, DO [address] [facility] [address] [place] [address] Social History Tobacco Use Types Packs/Day Years [...] suspected to have Coronavirus/COVID-19? No / Unsure 11/15/2022 11:09 PM EDT documented as of this encounter Plan of Treatment Upcoming Encounters Date Type Department Care Team (Late st Contact Info) Description 11/22/2024 10:15 AM EDT Office Visit [facility] [address] [place] [address] Phill Gil, DO [address] [place] [address] documented as of this encounter Visit Diagnoses Not on filedocumented in this encounter Care Teams Dial Buffer Relationship Specialty Start Date End Date Sunil Cam MD PCP - General Family Medicine 10/27/22 documented as of this encounter
--- OUTSIDE RECORDS SUMMARY | 2024-11-14 13:15 | XMS_ITS | Encounter Summary ---
Author Organization [facility] Address [address] [facility] [place] [address] Care Team Providers Care Parking Attendant Name Role Phone Sunil Cam MD Primary Care Provider [phone] Encounter Details Date Type Department Care Team ([facility] Contact Info) Description 10/22/2022 Abstract [facility] [address] [facility] [address] [facility] [address] [place] [address] Phill Gil, [address] [facility] [address] [place] [address] Social History Tobacco Use Types Packs/Day Years Used Date Smoking Tobacco: Never Smokeless Tobacco: Never Tobacco Cessation:Counseling Given: Not Answered Alcohol Use Standard Drinks/Week Comments Yes 0 (1 standard drink = 0.6 oz pur e alcohol) Comments Unknown Sex and Gender Information Value Date Recorded Sex Assigned at Not on file Legal Sex Female 7:13 PM EDT Gender Identity Not on file Sexual Orientation Not on file documented as of this encounter Plan of Treatment Upcoming Encounters Date Type Department Care Team (Late Contact Info) Description 11/22/2024 10:15 AM EDT Office Visit [facility] [address] [place] [address] Phill Gil, [address] [facility] [address] [place] [address] documented as of this encounter Visit Diagnoses Not on filedocumented in this encounter Care Teams Parking Attendant Relationship Specialty Start Date End Date Sunil Cam MD PCP - General Family Medicine 10/27/22 documented as of this encounter
--- OUTSIDE RECORDS SUMMARY | 2024-11-14 13:16 | XMS_ITS | Clinical Summary ---
Author Organization [facility] Address [address] [place] [address] Care Team Providers Care Machine Hostler Name Role Phone Sunil Cam MD Primary Care Provider [phone] Allergies No known active allergies Medications levothyroxine (Synthroid, Levoxyl) 100 MCG tablet Take 100 mcg by mouth in the morning. Take before meals. Active Levonorgestrel (LILETTA, 52 MG, IU) by Intrauterine route. 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 Dizziness and giddiness 02/25/2011 Tension-type headache 02/25/2011 Family History Medical History Relation Name Comments Heart disease Mother Latia Cook Hypothyroidism Mother Latia Cook Parkinsonism Mother Latia Cook Stroke Mother Latia Cook Thyroid disease Mother Latia Cook Breast cancer Neg Hx Relation Name Status Comments Brother 3 brothers Father Alive Mother Latia Cook Alive Sister 3 sisters Social History Tobacco Use Types Packs/Day Years Used Date Smoking Tobacco: Never Smokeless Tobacco: Never Alcohol Use Standard Drinks/Week Comments Yes 2 (1 standard drink = 0.6 oz pur e alcohol) Caffeine Intake: None AUDIT-C Answer Date Recorded Q1: How often do you have a drink containing alc ohol? Monthly or less 11/16/2023 Q2: How many drinks containi ng alcohol do you have on a typical day when you are drinking? 1 or 2 11/16/2023 Q3: How often do you have si x or more drinks on one occasion? Never 11/16/2023 PHQ-2 Answer Date Recorded Patient Health Questionnaire-2 Score 0 11/16/2023 Comments No Sex and Gender Information Value Date Recorded Sex Assigned at Not on file Legal Sex Female 7:13 PM EDT Gender Identity Not on file Sexual Orientation Not on file Last Filed Vital Signs Vital Sign Reading Time Taken Comments Blood Pressure 104/66 11/18/2023 9:14 AM EDT Pulse - - Temperature - - Respiratory Rate - - Oxygen Saturation - - Inhaled Oxygen Concentration - - Weight 61.7 kg (136 lb) 11/18/2023 9:14 AM EDT Height 163.8 cm (5' 4.5 ) 11/18/2023 9:14 AM EDT Body Mass Index 22.98 11/18/2023 9:14 AM EDT Plan of Treatment Upcoming Encounters Date Type Department Care Team (Late st Contact Info) Description 11/22/2024 10:15 AM EDT Office Visit [facility] [address] [facility] [address] [place] [address] Phill Gil, DO [address] [facility] [address] [place] [address] Health Maintenance Due Date Last Done Comments CT Colonography 1970 Colonoscopy 1970 Colorectal Cancer Screening 1970 FIT-DNA 1970 FIT 1970 FOBT 1970 Sigmoidoscopy 1970 HPV/Cotest 2000 Cervical Cancer Screening 10/10/2023 Pap Smear 10/10/2023 10/09/2020 Mammogram 12/26/2024 12/27/2023, 10/04, 10/14/2021, Additional history exists Influenza Vaccine (Season Ended) 2025 Procedures Procedure Name Priority Date/Time Associated Diagnosis Comments BI MAMMOGRAM SCREENING TOMOSYNTHESIS BILATERAL Routine 12/27/2023 3:19 PM EDT Encounter for screening mammogram for malignant neoplasm of breast THINPREP TIS PAP AND HPV MRNA E6/E7 REFLEX HPV 16,18/45 ([id number]) Routine 10/09/2020 from Last 3 Months or Most Recently Relevant to Health Maintenance Results * Bilateral screening mammogram with tomosynthesis (12/27/2023 3:19 PM EDT) Anatomical Region Laterality Modality Breast Bilateral Mammography 12/28/2023 11:0 3 AM EDT Impressions 12/28/2023 11:53 AM EDT BIRADS 1 - Negative Follow-up: Routine Screening Mamm Board Certified Radiologists. Accredited by the ACR and FDA. MAMMOGRAPHY IS VERY IMPORTANT TO YOUR HEALTH. THE [employer] GUIDELINES RECOMMEND THAT WOMEN 40 [...] BY: ELECTRONICALLY SIGNED BY: Kanu Linda MD Narrative 12/28/2023 11:53 AM EDT EXAMINATION: BI MAMMOGRAM SCREENING TOMOSYNTHESIS BILATERAL CLINICAL HISTORY:screening COMPARISON: September 13, 2022. RESULT: Density: Almost entirely fatty [1] Overall appearance is stable. There is no suspicious mass, asymmetry, architectural distortion, or calcification Procedure Note Kanu Linda MD - 12/28/2023 EXAMINATION: BI MAMMOGRAM SCREENING TOMOSYNTHESIS BILATERAL CLINICAL HISTORY:screening COMPARISON: September 13, 2022. RESULT: Density: Almost entirely fatty [1] Overall appearance is stable. There is no suspicious mass, asymmetry, architectural distortion, orcalcification IMPRESSION: BIRADS 1 - Negative Follow-up: Routine Screening Mamm Board Certified Radiologists. Accredited by the ACR and FDA. MAMMOGRAPHY IS VERY IMPORTANT TO YOUR HEALTH. THE [employer] CANCER SOCIETYGUIDELINES RECOMMEND THAT WOMEN 40 YEARS OF AGE AND OLDER SHOULD HAVE AMAMMOGRAM EVERY YEAR. A REMINDER LETTER WILL BE SENT AT THE APPROPRIATE TIME. THIS FACILITYUTILIZES A REMINDER SYSTEM TO ENSURE ALL PATIENTS RECEIVE REMINDERNOTIFICATIONS AT THE APPROPRIATE TIME BASED ON THE RECOMMENDATIONS OF THISEXAM. THIS INCLUDES REMINDERS FOR ROUTINE SCREENING MAMMOGRAMS, DIAGNOSTICMAMMOGRAMS IN WHICH THE PATIENT IS ASKED TO RETURN FOR ADDITIONAL VIEWS,OR OTHER BREAST IMAGING INTERVENTIONS WHEN APPROPRIATE. THE PATIENT WILLBE PLACED IN THE APPROPRIATE REMINDER SYSTEM INCLUDING A REMINDER AT THEAPPROPRIATE TIME FOR ANY PENDING ADDITIONAL VIEWS. TRANSCRIBED BY: ELECTRONICALLY SIGNED BY: Kanu Linda MD Phill Gil DO IMG BI PROCEDURES Final Resul t * THINPREP TIS PAP AND HPV MRNA E6/E7 REFLEX HPV 16,18/45 ([id number]) (10/09/2020) CLINICAL INFORMATION: None given [facility] LMP: NONE GIVEN [facility] PREV. PAP: 08/28/15- NEG, HPV NEG [facility]. BX: NONE GIVEN [facility] SOURCE: Cervix [facility] STATEMENT OF ADEQUACY: SEE COMMENT [facility] Comment: Satisfactory for evaluation. Endocervical/transformation zone component present. INTERPRETATION/RE SULT: Negative for intraepithelial lesion or malignancy. [facility] COMMENT: This Pap test has been evaluated with computer assisted technology. [facility] REFRIGERATION REPAIR SUPERVISOR: SEE COMMENT See Note: [facility] Comment: Reference Range: ZL, CT(ASCP) CT screening location: [place] [address]. COMMENT SEE COMMENT [facility] Comment: EXPLANATORY NOTE: The Pap is a screening test for cervical cancer. It is not a diagnostic test and is subject to false negative and false positive results. It is most reliable when a satisfactory sample, regularly obtained, is submitted with relevant clinical findings and history, and when the Pap result is evaluated along with historic and current clinical information. HPV MRNA E6/E7 Not Detected Not Detected [facility] Comment: Methodology: Telecommunications Repairer-Mediated Amplification This assay detects E6/E7 viral messenger RNA (mRNA) from 14 high-risk HPV types (16,18,31,33,35,39,45,51,52,56,58,59,66,68). The analytical performance characteristics of this assay have been determined by [employer]. The modifications have not been cleared or approved by the FDA. This assay has been validated pursuant to the CLIA regulations and is used for clinical purposes. For additional information, please refer to http://education.[employer]HeartThis/faq/SBC330w0 (This link if provided for information/ educational purposes only.) 10/09/2020 us Phill Gil DO [facility] Final Result [facility] from Last 3 Months or Most Recently Relevant to Health Maintenance Insurance [employer] Care Teams Machine Hostler Relationship Specialty Start Date End Date Sunil Cam MD PCP - General Family Medicine 10/27/22
--- OUTSIDE RECORDS SUMMARY | 2024-11-14 13:17 | XMS_ITS | Encounter Summary ---
Author Organization [facility] Address [address] [place] [address] Care Team Providers Care Front Facer Name Role Phone Sunil Cam MD Primary Care Provider [phone] Encounter Details Date Type Department Care Team (Late st Contact Info) Description 12/17/2022 Abstract [facility] [address] [facility] [address] [place] [address] Phill Gil, DO [address] [facility] [address] [place] [address] Social History Tobacco Use Types Packs/Day Years [...] suspected to have Coronavirus/COVID-19? No / Unsure 12/15/2022 5:07 PM EDT documented as of this encounter Plan of Treatment Upcoming Encounters Date Type Department Care Team (Late st Contact Info) Description 11/22/2024 10:15 AM EDT Office Visit [facility] [address] [place] [address] Phill Gil DO [address] [place] [address] documented as of this encounter Visit Diagnoses Not on filedocumented in this encounter Care Teams Front Facer Relationship Specialty Start Date End Date Sunil Cam MD PCP - General Family Medicine 10/27/22 documented as of this encounter
--- OUTSIDE RECORDS SUMMARY | 2024-11-14 13:17 | XMS_ITS | Encounter Summary ---
Author Organization [facility] Address [address] [place] [address] Care Team Providers Care Analytics Intern Name Role Phone Sunil Cam MD Primary Care Provider [phone] Encounter Details Date Type Department Care Team (Late st Contact Info) Description 11/29/2022 Abstract [facility] [address] [facility] [address] [place] [address] Houston Joseph MD [address] [facility] [address] [place] [address] Social History Tobacco Use Types Packs/Day Years [...] OB [address] [place] [address] Phill Gil, DO [address] [place] [address] documented as of this encounter Visit Diagnoses Not on filedocumented in this encounter Care Teams Analytics Intern Relationship Specialty Start Date End Date Sunil Cam MD PCP - General Family Medicine 10/27/22 documented as of this encounter
[2024-11-14 13:36] LABS: Basophils Percent Auto 0.3 % (0.2-2.0); Eosinophils Absolute Auto 0.2 10^3/uL (0.0-0.7); Eosinophils Percent Auto 2.8 % (0.9-7.0); Hemoglobin 13.4 g/dL (12.0-16.0); Immature Granulocytes Abs Auto 0.01 10^3/uL (0.00-0.03); Immature Granulocytes Pct Auto 0.2 % (0.0-0.5); Lymphocytes Absolute Auto 2.1 10^3/uL (1.2-3.8); Lymphocytes Percent Auto 32.3 % (20.5-60.0); Mean Corpuscular HGB Conc 33.5 g/dL (29.9-35.2); Mean Corpuscular Hemoglobin 31.6 pg (26.7-34.0); Mean Corpuscular Volume 94.3 fL (81.0-99.0); Mean Platelet Volume 10.1 fL (9.5-13.5); Monocytes Absolute Auto 0.5 10^3/uL (0.3-0.8); Monocytes Percent Auto 8.2 % (1.7-12.0); Neutrophils Absolute Auto 3.6 10^3/uL (1.4-6.5); Neutrophils Percent Auto 56.2 % (43.0-75.0); Platelet Count 231 10^3/uL (150-450); Red Blood Count 4.24 10^6/uL (4.20-5.40); Red Cell Distribution Width 13.4 % (11.0-15.0); White Blood Count 6.3 10^3/uL (4.0-11.0)
[2024-11-14 13:42] LABS: Estimated Average Glucose 117 mg/dL; Glycohemoglobin A1C 5.7 % (4.5-6.2)
[2024-11-14 14:10] LABS: Alanine Aminotransferase 17 U/L (14-59); Albumin Globulin Ratio 1.2; Albumin Level 3.9 g/dL (3.4-5.0); Alkaline Phosphatase 56 U/L (46-116); Anion Gap 13.5; Aspartate Amino Transferase 16 U/L (15-37); BUN Creatinine Ratio 15.5; Bilirubin Total 0.8 mg/dL (0.2-1.0); Calcium 9.5 mg/dL (8.5-10.1); Carbon Dioxide 29.3 mmol/L (21.0-32.0); Chloride 105 mmol/L (98-107); Chol HDL Ratio 2.7; Cholesterol 145 mg/dL (<=200); Estimated GFR (African America >60 (>=60 mL/min/1.73m^2); Estimated GFR (Non-African Ame >60 (>=60 mL/min/1.73m^2); Free T3 3.48 pg/mL (2.18-3.98); Globulin 3.3 g/dL; Glucose 94 mg/dL (74-106); HDL Cholesterol 53 mg/dL (40-60); LDL Cholesterol Calculated 75.6 mg/dL; Potassium 4.8 mmol/L (3.5-5.1); Sodium 143 mmol/L (136-145); Thyroid Stimulating Hormone 0.015 uIU/mL (0.358-3.740); Total Protein 7.2 g/dL (6.4-8.2); Triglycerides 82 mg/dL (<=150); VLDL CHOLESTEROL 16.4 mg/dL
== END 2024-11-14 13:09 | disposition home or self-care (01) ==
LOC: LAB 13:09
PROVIDERS: Family Provider Obstetrics & Gynecology; PCP Family Medicine; Visit Provider Family Medicine
DX: Z00.00 Encounter for general adult medical examination without abnormal findings (principal)
CPT/HCPCS: 36415; 80053; 80061; 83036; 84436; 84443; 84481; 85025